=== PATIENT | male | born 1965 | race Caucasian/White ===

== ENCOUNTER 2016-08-08 04:28 | Observation (INO) | payer SELFPAY ==
[~2016-08-08] VITALS: Ht 180.3 cm; Wt 56.3 kg
[~2016-08-08 04:28] MED LIST: CHLO25 PO
[2016-08-08 04:34] VITALS: BP 133/99; PULSE 130; RESP 20; TEMP 99; O2SAT 97
[2016-08-08] MEDS ORDERED: SODIUM CHLOR 0.9% 1000 ML INJ 1,000 ML IV SCH ×2 (04:50→06:45)
[2016-08-08 04:55] VITALS: RESP 18; O2SAT 99
[2016-08-08 05:00] VITALS: BP 144/97; PULSE 89; RESP 18; O2SAT 99
[2016-08-08] MEDS ORDERED: SODIUM CHLORID 0.9% 500 ML INJ 500 ML IV ONE ×2 (05:00→07:00)
[2016-08-08] MEDS ORDERED: SODIUM CHLORIDE 0.9% FLUSH 10 ML FLUSH IV FLUSH PRN (05:00)
[2016-08-08] MEDS ORDERED: PANTOPRAZOLE SODIUM 40 MG VIAL IVP ONE (05:00)
--- NOTE | 2016-08-08 05:03 | PD ---
HPI Chief Complaint: abdominal pain Time Seen by Provider: 04:50 Travel History International Travel<30 days: No Contact w/Intl Traveler<30days: No Traveled to known affect area: No History of Present Illness HPI 51-year-old male presents to the emergency department by private transportation for complaint of abdominal pain and constipation. Patient reports no bowel movement 2 days. Patient has been using a stool softener without relief. Patient reports decreased oral intake. Patient reports pain is very severe and this evening he tried to digitally disimpact himself and noted some blood. Patient also reports that while sitting on the toilet smoking the cigarette he noticed some blood on the cigarette itself. Patient denies other concerns or complaints. Patient denies fever or chills. Patient has had no chest pain or shortness of breath. Patient does admit to tobacco use and alcohol use. Patient denies any chronic medical conditions other than kidney stones diagnosed a few years ago. Patient reports rectal pain as severe. Patient denies inserting anything rectally. PFSH Past Medical History Narrative Medical Anxiety, kidney stones, tonsillectomy; alcohol use tobacco use; nursing notes reviewed Anxiety: Yes Depression: No Cancer: No Cardiovascular Problems: No Diminished Hearing: No Endocrine: No Genitourinary: No Immune Disorder: No Musculoskeletal: No Neurologic: No Psychiatric: Yes (alcohol dependance) Reproductive: No Respiratory: No Past Surgical History Tonsillectomy: Yes Social History Alcohol Use: Yes (occ) Tobacco Use: Yes (1 ppd) Substance Use: No Allergies-Medications (Allergen,Severity, Reaction): Coded Allergies: No Known Allergies (Unverified , 08/08/16) Reported Meds & Prescriptions Reported Meds & Active Scripts Active Review of Systems Except as stated in HPI: all other systems reviewed are Neg General / Constitutional: No: Fever HENT: No: Congestion Cardiovascular: No: Chest Pain or Discomfort Respiratory: No: Shortness of Breath Gastrointestinal: Positive: Nausea, Abdominal Pain, Constipation, Loss of Appetite, No: Vomiting, Diarrhea Genitourinary: Positive: Decreased Urinary Output Musculoskeletal: No: Myalgias, Arthralgias Skin: No Rash Neurologic: Positive: Weakness Psychiatric: Positive: Anxiety Hematologic/Lymphatic: No: Easy Bruising Physical Exam Narrative GENERAL: Thin anxious-appearing male in no respiratory distress. SKIN: Warm and dry. HEAD: Normocephalic. EYES: No scleral icterus. No injection or drainage. NECK: Supple, trachea midline. No JVD or lymphadenopathy. CARDIOVASCULAR: Regular rate and rhythm without murmurs, gallops, or rubs. RESPIRATORY: Breath sounds equal bilaterally. No accessory muscle use. GASTROINTESTINAL: Abdomen soft, tender bilateral lower quadrants to palpation without guarding or rebound, nondistended. Rectal exam: No fissure no hemorrhoid, normal sphincter tone, large bolus of formed firm stool in the rectal vault brown stool on the exam glove. No palpable foreign body other than stool noted. MUSCULOSKELETAL: No cyanosis, or edema. BACK: Nontender without obvious deformity. No CVA tenderness. Data Data Last Documented VS Vital Signs Date Time Temp Pulse Resp B/P Pulse Ox O2 Delivery O2 Flow Rate FiO2 08/08/16 07:11 16 08/08/16 06:15 98.3 91 132/79 99 Room Air Orders Complete Blood Count With Diff (08/08/16 04:50) Comprehensive Metabolic Panel (08/08/16 04:50) Lipase (08/08/16 04:50) Lactic Acid (08/08/16 04:50) Prothrombin Time / Inr (Pt) (08/08/16 04:50) Act Partial Throm Time (Ptt) (08/08/16 04:50) Urinalysis - C+S If Indicated (08/08/16 04:50) Ct Abd/Pel W Iv Contrast(Rout) (08/08/16 04:50) Iv Access Insert/Monitor (08/08/16 04:50) Ecg Monitoring (08/08/16 04:50) Oximetry (08/08/16 04:50) Pantoprazole Inj (Protonix Inj) (08/08/16 05:00) Sodium Chlor 0.9% 1000 Ml Inj (Ns 1000 M (08/08/16 04:50) Sodium Chloride 0.9% Flush (Ns Flush) (08/08/16 05:00) Alcohol (Ethanol) (08/08/16 04:50) Magnesium (Mg) (08/08/16 04:50) Type And Screen (08/08/16 04:50) Sodium Chlorid 0.9% 500 Ml Inj (Ns 500 M (08/08/16 05:00) Chest, Single Ap (08/08/16 ) Sodium Chlor 0.9% 1000 Ml Inj (Ns 1000 M (08/08/16 05:30) Piperacil-Tazo 4.5 Gm Premix (Zosyn 4.5 (08/08/16 05:30) Ondansetron Inj (Zofran Inj) (08/08/16 05:30) Hydromorphone Pf Inj (Dilaudid Pf Inj) (08/08/16 05:30) Iohexol 350 Inj (Omnipaque 350 Inj) (08/08/16 05:57) Lactic Acid (08/08/16 06:25) Bisacodyl Supp (Dulcolax Supp) (08/08/16 06:45) Diet Npo (08/08/16 Breakfast) Vital Signs (Adult) JONES.Q4H (08/08/16 06:39) Sodium Chlor 0.9% 1000 Ml Inj (Ns 1000 M (08/08/16 06:45) Pantoprazole Inj (Protonix Inj) (08/08/16 09:00) Ondansetron Inj (Zofran Inj) (08/08/16 06:45) Admit Order (Ed Use Only) (08/08/16 ) ^ Saline Lock (08/08/16 06:46) Resp Oxygen Kamaljit C Titrat 1-4 L (08/08/16 ) Notify Dr: Other (08/08/16 06:46) Sodium Chloride 0.9% Flush (Ns Flush) (08/08/16 09:00) Sodium Chloride 0.9% Flush (Ns Flush) (08/08/16 07:00) Arterial Blood Gas (Abg) (08/08/16 ) Sodium Chlorid 0.9% 500 Ml Inj (Ns 500 M (08/08/16 07:00) Alcohol Withdrawal Asmt-Ciwa ONCE (08/08/16 06:49) Flumazenil Inj (Romazicon Inj) (08/08/16 07:00) Lorazepam (Ativan) (08/08/16 07:00) Lorazepam Inj (Ativan Inj) (08/08/16 07:00) Lorazepam (Ativan) (08/08/16 07:00) Lorazepam Inj (Ativan Inj) (08/08/16 07:00) Lorazepam Inj (Ativan Inj) (08/08/16 07:00) Lorazepam Inj (Ativan Inj) (08/08/16 07:00) Labs Laboratory Tests Test 08/08/16 08/08/16 04:55 06:00 White Blood Count 12.0 TH/MM3 Red Blood Count 4.57 MIL/MM3 Hemoglobin 15.3 GM/DL Hematocrit 45.2 % Mean Corpuscular Volume 99.0 FL Mean Corpuscular Hemoglobin 33.4 PG Mean Corpuscular Hemoglobin 33.8 % Concent Red Cell Distribution Width 12.4 % Platelet Count 312 TH/MM3 Mean Platelet Volume 7.4 FL Neutrophils (%) (Auto) 62.5 % Lymphocytes (%) (Auto) 20.9 % Monocytes (%) (Auto) 11.4 % Eosinophils (%) (Auto) 2.9 % Basophils (%) (Auto) 2.3 % Neutrophils # (Auto) 7.5 TH/MM3 Lymphocytes # (Auto) 2.5 TH/MM3 Monocytes # (Auto) 1.4 TH/MM3 Eosinophils # (Auto) 0.3 TH/MM3 Basophils # (Auto) 0.3 TH/MM3 CBC Comment DIFF FINAL Differential Comment Prothrombin Time 9.8 SEC Prothromb Time International 0.9 RATIO Ratio Activated Partial 29.1 SEC Thromboplast Time Sodium Level 138 MEQ/L Potassium Level 3.8 MEQ/L Chloride Level 103 MEQ/L Carbon Dioxide Level 18.6 MEQ/L Anion Gap 16 MEQ/L Blood Urea Nitrogen 3 MG/DL Creatinine 0.75 MG/DL Estimat Glomerular Filtration 110 ML/MIN Rate Random Glucose 93 MG/DL Lactic Acid Level 3.6 mmol/L Calcium Level 9.2 MG/DL Magnesium Level 1.8 MG/DL Total Bilirubin 0.7 MG/DL Aspartate Amino Transf 23 U/L (AST/SGOT) Alanine Aminotransferase 21 U/L (ALT/SGPT) Alkaline Phosphatase 72 U/L Total Protein 7.2 GM/DL Albumin 3.8 GM/DL Lipase 56 U/L Ethyl Alcohol Level 4 MG/DL Blood Type B NEGATIVE Antibody Screen NEGATIVE Blood Bank Comment Urine Color STRAW Urine Turbidity CLEAR Urine pH 5.5 Urine Specific Saline 1.010 Urine Protein NEG mg/dL Urine Glucose (UA) NEG mg/dL Urine Ketones 15 mg/dL Urine Occult Blood NEG Urine Nitrite NEG Urine Bilirubin NEG Urine Leukocyte Esterase NEG Urine RBC 0-2 /hpf Urine WBC 0-2 /hpf Urine Squamous Epithelial 0-5 /hpf Cells Urine Bacteria NONE /hpf Microscopic Urinalysis Comment CULT NOT INDICATED MDM Medical Decision Making Medical Screen Exam Complete: Yes Emergency Medical Condition: Yes Medical Record Reviewed: Yes Interpretation(s) CBC & BMP Diagram 08/08/16 04:55 Vital Signs Date Time Temp Pulse Resp B/P Pulse Ox O2 Delivery O2 Flow Rate FiO2 08/08/16 06:15 98.3 91 20 132/79 99 Room Air 08/08/16 06:15 18 08/08/16 05:30 87 18 119/80 100 Room Air 08/08/16 05:00 89 18 144/97 99 Room Air 08/08/16 04:55 18 99 Room Air 08/08/16 04:50 18 08/08/16 04:34 99.0 130 20 133/99 97 Lactic acid 3.6, elevated Serum alcohol: 4.0, minimally elevated Urinalysis: ketones otherwise unremarkable Differential Diagnosis Abdominal pain, colitis, diverticulitis, bowel obstruction, constipation obstipation, viscus perforation, GI bleed, esophageal varices, AVM, alcoholism, electrolyte disturbance, dehydration, sepsis, alcohol ketoacidosis, lactic acidosis, peritonitis, pneumonia Narrative Course Patient placed on cardiac cath lab manager IV access obtained specimens collected and sent for resulting; she administered normal saline bolus and Zofran for nausea Lab values resulting with white count of 12,000 but otherwise normal hemoglobin hematocrit platelet count and automated differential; lactic acid elevated at 3.6 with a bicarbonate of 18 and an anion gap of 16; patient administered Zosyn 4.[address] abdomen and pelvis pending chest x-ray for subdiaphragmatic free air pending serum alcohol 4, not elevated. Coagulation studies found in normal range. Patient requesting pain medication and receiving maintenance IV fluids 125 cc per hour normal saline; Dilaudid 0.5 mg administered @5:45 AM patient has gone to CT At 6:[address] resulted and remarkable for fatty liver and constipation no acute intra-abdominal or pelvic abnormality; chest x-ray no lobar infiltrate no subdiaphragmatic free air; patient administered a lot suppository. Patient identified to have leukocytosis with lactic acidosis 3.6 and noted bicarbonate of 18.6 with anion gap 16; ABG ordered. Patient continues to complain of abdominal pain and noted subsequently to have blood in his mouth without obvious intraoral source of bleeding. Patient denies coughing any blood has had nausea unclear if this was related to regurgitation or hematemesis but this is the third time this has happened reportedly this morning. With patient's history of previous alcohol abuse concerning for gastritis, esophagitis, or variceal bleeding. Will admit patient for observation. Repeat lactic acid pending. Case discussed with on-call [facility] MD Dr. Espinoza will admit as observation with gastritis unclear if GI bleed, elevated lactic acid level with pending two hour lactate do at 7:30 AM; in view of history of previous alcohol abuse that patient states he has significantly decreased alcohol consumption to rare use with normal range serum magnesium serum albumin and serum protein at this time does not appear to have active alcohol withdrawal symptoms other than noted to have tachycardia upon arrival with upper limit of normal blood pressure will add CIWA protocol. Patient with mother at bedside refuses admission to the hospital extensive and detailed discussion held with the patient with family at bedside and with patient's nurse at bedside including risk of leaving AGAINST MEDICAL ADVICE versus benefit of staying in the hospital. Patient is aware of risk of acute deterioration GI bleed cardiac arrhythmia and . Patient states that he is aware of the risk and states he cannot stay. Patient is aware that he'll be signing out against medical advise. AMA: The risks of leaving against medical advice without further evaluation treatment were discussed with the patient. These risks include cardiac dysfunction, cardiac dysrhythmia, possible heart attack, possible stroke or . The patient indicated understanding of these risks and appeared to have the capacity to make this decision. Critical Care Narrative Aggregate critical care time was 35 minutes. Time to perform other separately billable procedures was not included in the critical care time. My time did not include minutes spent treating any other patients simultaneously or on activities that did not directly contribute to the patient's treatment. The services I provided to this patient were to treat and/or prevent clinically significant deterioration that could result in: GI bleed with hypovolemic shock , septic shock, metabolic derangement, I provided critical care services requiring my management, as noted below: Chart data review, documentation time, medication orders and management, vital sign assessments/reviewing monitor data, ordering and reviewing lab tests, ordering and interpreting/reviewing x-rays and diagnostic studies, care of the patient and discussion of the patient with the admitting physicians. HemaPrompt Point of Care Internal Pos. & Neg. Controls: Passed Fecal Specimen Occult Blood: Positive (tracemucous on glove brown stool no gross blood or melena) Sepsis Criteria SIRS Criteria (2 or more): Heart rate over 90, WBC > 05804, < 4000 or > 10% bands Severe Sepsis (+one): Lactate >2 Physician Communication Physician Communication discussed with Dr Ferris --obs for gastritis and lactic acidosis; discussed with GI Dr Mora Diagnosis Primary Impression: Gastritis Qualified Code: K29.01 - Acute gastritis with hemorrhage, unspecified gastritis type Additional Impressions: Elevated lactic acid level Constipation Qualified Code: K59.09 - Other constipation GI bleed Qualified Code: K92.2 - Gastrointestinal hemorrhage, unspecified gastrointestinal hemorrhage type Admitting Information Admitting Physician Requests: Observation Sury Montalvo MD Aug 08, 2016 05:03
[2016-08-08 05:12] LABS: AUTOMATED NEUTROPHIL # 7.5 TH/MM3 (1.8-7.7); BASOPHIL # 0.3 TH/MM3 (0-0.2); BASOPHIL % 2.3 % (0.0-2.0); EOSINOPHIL # 0.3 TH/MM3 (0-0.4); EOSINOPHIL % 2.9 % (0.0-4.0); HEMATOCRIT 45.2 % (39.0-51.0); LYMPH % 20.9 % (9.0-44.0); LYMPHOCYTE # 2.5 TH/MM3 (1.0-4.8); MEAN CORPUSCULAR HEMOGLOBIN 33.4 PG (27.0-34.0); MEAN CORPUSCULAR HGB CONC 33.8 % (32.0-36.0); MONO % 11.4 % (0.0-8.0); NEUT % 62.5 % (16.0-70.0); PLATELET COUNT 312 TH/MM3 (150-450); RED BLOOD COUNT 4.57 MIL/MM3 (4.50-5.90); RED CELL DISTRIBUTION WIDTH 12.4 % (11.6-17.2)
[2016-08-08 05:15] LABS: CHLORIDE 103 MEQ/L (98-107); POTASSIUM 3.8 MEQ/L (3.5-5.1); SODIUM (NA) 138 MEQ/L (136-145)
[2016-08-08 05:19] LABS: ANION GAP 16 MEQ/L (5-15); APTT (PATIENT) 29.1 SEC (24.3-30.1); BICARBONATE 18.6 MEQ/L (21.0-32.0); BLOOD UREA NITROGEN 3 MG/DL (7-18); HEMO FLAGS DIFF FINAL; INTERNATIONAL NORMALIZED RATIO 0.9 RATIO; MAGNESIUM 1.8 MG/DL (1.5-2.5); PROTHROMBIN TIME - PATIENT 9.8 SEC (9.8-11.6)
[2016-08-08 05:21] LABS: ALT (GPT) 21 U/L (12-78)
[2016-08-08 05:22] LABS: AST (GOT) 23 U/L (15-37); GLOMERULAR FILTRATION RATE 110 ML/MIN (>89)
[2016-08-08 05:23] LABS: TOTAL BILIRUBIN ADULT 0.7 MG/DL (0.2-1.0)
[2016-08-08 05:24] LABS: ALKALINE PHOSPHATASE 72 U/L (45-117)
[2016-08-08 05:30] VITALS: BP 119/80; PULSE 87; RESP 18; O2SAT 100
[2016-08-08] MEDS ORDERED: ONDANSETRON HCL 4 MG/2 ML VIAL IV PUSH ONE (05:30)
[2016-08-08] MEDS ORDERED: HYDROmorphone HCL PF 1 MG/ML VIAL IV PUSH ONE (05:30)
[2016-08-08] MEDS ORDERED: SODIUM CHLOR 0.9% 1000 ML INJ 1,000 ML IV ONE (05:30)
[2016-08-08] MEDS ORDERED: PIPERACIL-TAZO 4.5 GM PREMIX 100 ML IV ONE (05:30)
[2016-08-08] MEDS ORDERED: IOHEXOL 350 MG/ML 10 ML VIAL (for RAD DIAG) IV ONE (05:57)
[2016-08-08 06:15] VITALS: BP 132/79; PULSE 91; RESP 20; TEMP 98.3; O2SAT 99
[2016-08-08 06:15] LABS: BLOOD, URINE NEG (NEG); GLUCOSE,URINE NEG (NEG); KETONE, URINE 15 mg/dL (NEG); NITRITE,URINE NEG (NEG); PH, URINE 5.5 (5.0-8.5)
[2016-08-08 06:23] LABS: URINE COLOR STRAW (YELLW/STRAW)
[2016-08-08 06:24] LABS: COMMENT (UR) CULT NOT INDICATED; CULTURE IF INDICATED CULT NOT INDICATED; RBC, URINE 0-2 /hpf (0-3); SQUAMOUS EPITHELIAL CELL URINE 0-5 /hpf (0-5); WBC, URINE 0-2 /hpf (0-5)
--- NOTE | 2016-08-08 06:26 | RADHPO ---
EXAM DATE/TIME: 08/08/2016 05:38 [facility] COMPARISON: CT ABDOMEN & PELVIS W/O CONTRAST, August 31, 2014, 9:06. INDICATIONS : Abdominal pain. Constipation. Rectal bleeding. IV CONTRAST: 100 cc Omnipaque 350 (iohexol) IV ORAL CONTRAST: No oral contrast ingested. RADIATION DOSE: 4.87 CTDIvol (mGy) MEDICAL HISTORY : None SURGICAL HISTORY : None. ENCOUNTER: Initial ACUITY: 3 days PAIN SCALE: 9/10 LOCATION: Bilateral lower quadrant upper quadrant. TECHNIQUE: Volumetric scanning of the abdomen and pelvis was performed. Using automated exposure control and ad justment of the mA and/or kV according to patient size, radiation dose was kept as low as reasonably achievable to obtain optimal diagnostic quality images. FINDINGS: CT Abdomen: The spleen, pancreas, kidneys, adrenals are unremarkable. There is no evidence for any ap preciable pathological adenopathy, free fluid, or bowel obstruction. There is slight scarring in the right lung base. The liver is fatty without focal lesions or technique. Chronic vascular calcificati ons are present involving the aorta, iliac arteries without any significant stenosis or aneurysmal di latations for technique. CT pelvis: There is no evidence for mass, abscess formation, or any significant adenopathy within the pelvis. There is an area of sclerosis involving the left femoral head may represent avascular necros is not changed since the prior exam. There is chronic bilateral spondylolysis at L5 level. There is m oderate amount of stool throughout the colon. CONCLUSION: 1. Fatty liver. 2. Chronic spondylolysis L5. 3. Possible AVN left femoral head. 4. There is moderate amount of stool throughout the colon. Kristina Mejia MD on August 08, 2016 at 6:21 Board Certified Radiologist. This report was verified electronically.
--- NOTE | 2016-08-08 06:38 | RADHPO ---
EXAM DATE/TIME: 08/08/2016 05:33 [facility] COMPARISON: No previous studies available for comparison. INDICATIONS : Short of breath. MEDICAL HISTORY : Hypertension. SURGICAL HISTORY : None. ENCOUNTER: Initial ACUITY: 1 day PAIN SCORE: 0/10 LOCATION: Bilateral chest FINDINGS: The lungs are clear without infiltrate, nodule, or mass. There is no appreciable pleural effusion fo r technique. Heart and mediastinum are unremarkable. CONCLUSION: No acute cardiopulmonary disease. Kristina Mejia MD on August 08, 2016 at 6:36 Board Certified Radiologist. This report was verified electronically.
[2016-08-08] MEDS ORDERED: ONDANSETRON HCL 4 MG/2 ML VIAL IV PUSH PRN (06:45)
[2016-08-08] MEDS ORDERED: BISACODYL 10 MG SUPP RECTAL ONE (06:45)
[2016-08-08] MEDS ORDERED: LORazepam 1 MG TAB PO PRN (07:00)
[2016-08-08] MEDS ORDERED: FLUMAZENIL 0.5 MG/5 ML VIAL IV PUSH PRN (07:00)
[2016-08-08] MEDS ORDERED: SODIUM CHLORIDE 0.9% FLUSH 10 ML FLUSH IVF PRN (07:00)
[2016-08-08] MEDS ORDERED: LORazepam 2 MG TAB PO PRN (07:00)
[2016-08-08] MEDS ORDERED: LORazepam 2 MG/ML VIAL IV PUSH PRN ×4 (07:00)
[2016-08-08 07:11] VITALS: BP 119/86; PULSE 92; RESP 16; TEMP 98; O2SAT 99
[2016-08-08] MEDS ORDERED: SODIUM CHLORIDE 0.9% FLUSH 10 ML FLUSH IV FLUSH SCH (09:00)
[2016-08-08] MEDS ORDERED: PANTOPRAZOLE SODIUM 40 MG VIAL IV PUSH SCH (09:00)
== END 2016-08-08 07:56 | disposition home or self-care (01) ==
LOC: PHED 04:28 → PHEDA 06:47
PROVIDERS: ADMIT Internal Medicine; ATTEND Internal Medicine
DX: K29.00 Acute gastritis without bleeding (principal); K59.00 Constipation, unspecified; K62.89 Other specified diseases of anus and rectum; F41.9 Anxiety disorder, unspecified; F17.210 Nicotine dependence, cigarettes, uncomplicated; R74.0 Nonspecific elevation of levels of transaminase and lactic acid dehydrogenase [LDH]; K76.0 Fatty (change of) liver, not elsewhere classified; R06.02 Shortness of breath; R79.89 Other specified abnormal findings of blood chemistry
CPT/HCPCS: 71010; 74177; 80053; 80307; 81001; 83605; 83690; 83735; 85025; 85610; 85730; 86850; 86900; 86901; 96361; 96365; 96375; 99291; C9113; G0378; J1170; J2405; J2543; J7030; J7040; Q9967

== ENCOUNTER 2016-09-27 07:07 | Emergency (ER) | payer SELFPAY ==
[~2016-09-27] VITALS: Ht 180.3 cm; Wt 63.5 kg
[2016-09-27 07:14] VITALS: BP 139/79; PULSE 89; RESP 17; TEMP 98.8; O2SAT 100
--- NOTE | 2016-09-27 07:42 | PD ---
HPI . Abdominal pain Chief Complaint: Abdominal Pain Time Seen by Provider: 07:24 Travel History International Travel<30 days: No Contact w/Intl Traveler<30days: No Traveled to known affect area: No History of Present Illness HPI Patient presents with a chief complaint of abdominal pain. Actually, the first thing that he said to me was "can you give me something for this pain." Patient reports the onset of abdominal pain at about 5:30 AM. He complains of right lower quadrant and right testicular pain. He states that it is a stabbing pain which she rates as 10/10. He also reports "spitting up blood" and blood in his stool. PFSH Past Medical History Anxiety: Yes Depression: No Cancer: No Cardiovascular Problems: No Diminished Hearing: No Endocrine: No Genitourinary: No Immune Disorder: No Kidney Stones: Yes Musculoskeletal: No Neurologic: No Psychiatric: Yes (alcohol dependance) Reproductive: No Respiratory: No ?: Not Past Surgical History Tonsillectomy: Yes Other Surgery: Yes Social History Alcohol Use: Yes (occ) Tobacco Use: Yes (3/4 ppd) Substance Use: No Allergies-Medications (Allergen,Severity, Reaction): Coded Allergies: Penicillin (Verified Allergy, Unknown, 09/27/16) Reported Meds & Prescriptions Reported Meds & Active Scripts Active No Active Prescriptions or Reported Medications Review of Systems Except as stated in HPI: all other systems reviewed are Neg Gastrointestinal: Positive: Abdominal Pain, Hematochezia Genitourinary: Positive: Other (right testicular pain), No: Urgency, Frequency , Dysuria Physical Exam Narrative GENERAL: Patient smells of alcohol. SKIN: Warm and dry. HEAD: Atraumatic. Normocephalic. EYES: Pupils equal and round. Extraocular movements are intact. ENT: No nasal bleeding or discharge. Mucous membranes pink and moist. NECK: Trachea midline. Neck is supple. CARDIOVASCULAR: Regular rate and rhythm. Heart sounds are normal. RESPIRATORY: No accessory muscle use. Lungs are clear with full air movement throughout. GASTROINTESTINAL: Abdomen soft and right lower quadrant tenderness. Nondistended. : Normal circumcised male. There is no testicular swelling or tenderness. No tenderness or swelling of the epididymis or spermatic cord. No hernia. RECTAL: No external hemorrhoid noted. No masses. Brown stool in the rectal vault which is soft. MUSCULOSKELETAL: No obvious deformities. No edema. NEUROLOGICAL: Awake and alert. No obvious cranial nerve deficits. Motor grossly within normal limits. Normal speech. PSYCHIATRIC: Appropriate mood and affect; insight and judgment normal. Data Data Last Documented VS Vital Signs Date Time Temp Pulse Resp B/P Pulse Ox O2 Delivery O2 Flow Rate FiO2 09/27/16 07:14 98.8 89 17 139/79 100 MDM Medical Decision Making Medical Screen Exam Complete: Yes Emergency Medical Condition: Yes Medical Record Reviewed: Yes (patient was seen here on 08/08/16 with similar complaints. He was noted to have leukocytosis and lactic acidosis. He also had some blood in his mouth at one point while he was here. He was subsequently admitted to observation but left AMA.) Differential Diagnosis Differential diagnosis of abdominal pain includes but is not limited to gastritis, pancreatitis, hepatitis, gastroenteritis, gallbladder disease, constipation, urinary retention, UTI, peptic ulcer disease, diverticulitis or appendicitis Narrative Course Patient presents for evaluation of right lower quadrant abdominal pain, right testicular pain and "spitting up blood" and passing blood in his stool. I asked the patient how much he had had to drink in the recent past as he smelled of alcohol. The patient subsequently requested to leave AMA. HemaPrompt Point of Care Internal Pos. & Neg. Controls: Passed Fecal Specimen Occult Blood: Negative Diagnosis Primary Impression: Abdominal pain Qualified Code: R10.31 - Right lower quadrant abdominal pain Patient Instructions: General Instructions, Abdominal Pain (ED) Departure Forms: Tests/Procedures Scripts No Active Prescriptions or Reported Meds Disposition: 07 AGAINST MEDICAL ADVICE Condition: Stable Crystal Marr MD September 27, 2016 07:42
== END 2016-09-27 08:14 | disposition left against medical advice (07) ==
LOC: PHED 07:07
DX: R10.31 Right lower quadrant pain (principal); N50.811 Right testicular pain; K92.1 Melena; R04.2 Hemoptysis; Z87.442 Personal history of urinary calculi; Z53.29 Procedure and treatment not carried out because of patient's decision for other reasons; F17.210 Nicotine dependence, cigarettes, uncomplicated
CPT/HCPCS: 99283

== ENCOUNTER 2017-04-24 19:24 | Inpatient (IN) | payer SELFPAY ==
[~2017-04-24] VITALS: Ht 180.3 cm; Wt 51.5 kg
[2017-04-24 19:40] VITALS: BP 132/96; PULSE 111; RESP 20; TEMP 99.8; O2SAT 96
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
[2017-04-24] MEDS ORDERED: SODIUM CHLOR 0.9% 1000 ML INJ 1,000 ML IV ONE (20:00)
[2017-04-24] MEDS ORDERED: ONDANSETRON HCL 4 MG/2 ML VIAL IVP ONE (20:00)
[2017-04-24] MEDS ORDERED: SODIUM CHLORIDE 0.9% FLUSH 10 ML FLUSH IVF PRN (20:00)
[2017-04-24] MEDS ORDERED: HYDROmorphone HCL PF 2 MG/ML VIAL IV PUSH ONE ×2 (20:00→21:30)
[2017-04-24 20:35] LABS: AUTOMATED NEUTROPHIL # 5.6 TH/MM3 (1.8-7.7); BASOPHIL # 0.1 TH/MM3 (0-0.2); BASOPHIL % 1.4 % (0.0-2.0); EOSINOPHIL % 0.5 % (0.0-4.0); HEMATOCRIT 38.1 % (39.0-51.0); LYMPHOCYTE # 1.4 TH/MM3 (1.0-4.8); MEAN CELL VOLUME 99.5 FL (80.0-100.0); MEAN CORPUSCULAR HGB CONC 34.2 % (32.0-36.0); MEAN PLATELET VOLUME 7.1 FL (7.0-11.0); MONO % 17.5 % (0.0-8.0); MONOCYTE # 1.5 TH/MM3 (0-0.9); NEUT % 64.6 % (16.0-70.0); PLATELET COUNT 328 TH/MM3 (150-450); RED BLOOD COUNT 3.83 MIL/MM3 (4.50-5.90); RED CELL DISTRIBUTION WIDTH 13.1 % (11.6-17.2); WHITE BLOOD COUNT 8.7 TH/MM3 (4.0-11.0)
[2017-04-24 20:36] LABS: BILIRUBIN, URINE NEG (NEG); BLOOD, URINE NEG (NEG); GLUCOSE,URINE NEG (NEG); KETONE, URINE NEG (NEG); NITRITE,URINE NEG (NEG); URINE COLOR LIGHT-YELLOW (YELLW/STRAW); URINE LEUKOCYTE ESTERASE NEG (NEG)
--- NOTE | 2017-04-24 20:42 | RADRPT ---
EXAM DATE/TIME: 04/24/2017 20:22 [facility] COMPARISON: CHEST SINGLE AP, August 08, 2016, 5:33. INDICATIONS : Pain from fall. MEDICAL HISTORY : None. SURGICAL HISTORY : None. ENCOUNTER: Initial ACUITY: 1 day PAIN SCORE: 1/10 LOCATION: Bilateral chest FINDINGS: A single view of the chest demonstrates the lungs to be symmetrically aerated without evidence of mas s, infiltrate or effusion. The cardiomediastinal contours are unremarkable. Osseous structures are intact. CONCLUSION: The lungs are clear. No evidence of pneumothorax. Leeroy Bazan MD on April 24, 2017 at 20:39 Board Certified Radiologist. This report was verified electronically.
[2017-04-24 20:48] LABS: PROTHROMBIN TIME - PATIENT 9.7 SEC (9.8-11.6)
[2017-04-24 20:53] LABS: ALBUMIN 3.8 GM/DL (3.4-5.0); AST (GOT) 40 U/L (15-37); BICARBONATE 21.2 MEQ/L (21.0-32.0); BLOOD UREA NITROGEN 3 MG/DL (7-18); CALCIUM 8.8 MG/DL (8.5-10.1); CHLORIDE 107 MEQ/L (98-107); GLOMERULAR FILTRATION RATE 102 ML/MIN (>89); GLUCOSE,RANDOM 166 MG/DL (74-106); SODIUM (NA) 138 MEQ/L (136-145)
--- NOTE | 2017-04-24 20:53 | RADRPT ---
EXAM DATE/TIME: 04/24/2017 20:09 [facility] COMPARISON: No previous studies available for comparison. INDICATIONS : Pain from fall. MEDICAL HISTORY : None. SURGICAL HISTORY : None. ENCOUNTER: Initial ACUITY: 1 day PAIN SCORE: 10/10 LOCATION: Left pelvis FINDINGS: Oblique lucency through the intertrochanteric region of the right proximal femur and cortical step of f of the superior aspect of the greater trochanter. The pelvic ring is grossly intact. The left pro ximal femur appears intact. CONCLUSION: Probable right intratrochanteric fracture Leeroy Bazan MD on April 24, 2017 at 20:50 Board Certified Radiologist. This report was verified electronically.
[2017-04-24 20:57] LABS: ALKALINE PHOSPHATASE 92 U/L (45-117); ALT (GPT) 28 U/L (12-78); TOTAL PROTEIN 7.3 GM/DL (6.4-8.2)
--- NOTE | 2017-04-24 20:57 | RADRPT ---
EXAM DATE/TIME: 04/24/2017 20:11 [facility] COMPARISON: PELVIS AP ONLY, April 24, 2017, 20:09. INDICATIONS : Pain from fall. MEDICAL HISTORY : None. SURGICAL HISTORY : None. ENCOUNTER: Initial ACUITY: 1 day PAIN SCORE: 10/10 LOCATION: Right proximal femur. FINDINGS: AP examination of the femur demonstrates intact shafts the femur. There is a oblique lucency through the inferior intertrochanteric region which may represent an intratrochanteric fracture. The femora l head and acetabulum appear intact. CONCLUSION: Possible intratrochanteric fracture. Leeroy Bazan MD on April 24, 2017 at 20:54 Board Certified Radiologist. This report was verified electronically.
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
[2017-04-24 21:45] VITALS: BP 153/85; PULSE 95; RESP 20; O2SAT 97
[2017-04-24] MEDS ORDERED: BISACODYL 10 MG SUPP RECTAL PRN (21:45)
[2017-04-24] MEDS ORDERED: ONDANSETRON HCL 4 MG/2 ML VIAL IVP PRN (21:45)
[2017-04-24] MEDS ORDERED: SENNOSIDES 8.6 MG TAB PO PRN (21:45)
[2017-04-24] MEDS ORDERED: MAGNESIUM HYDROXIDE SUSP 30 ML CUP PO PRN (21:45)
[2017-04-24] MEDS ORDERED: SODIUM CHLORIDE 0.9% FLUSH 10 ML FLUSH IV FLUSH PRN (21:45)
[2017-04-24] MEDS ORDERED: ACETAMINOPHEN 325 MG TAB PO PRN (21:45)
[2017-04-24] MEDS ORDERED: ACETAMINOPHEN/HYDROcodone 325 MG/5 MG TAB PO PRN (21:45)
[2017-04-24] MEDS ORDERED: LACTULOSE SYRUP 20 GM/30 ML CUP PO PRN (21:45)
[2017-04-24] MEDS: SODIUM CHLOR 0.9% 1000 ML INJ 1,000 ML IV SCH (21:47)
[2017-04-24 22:00] VITALS: BP 150/89; PULSE 90; RESP 20; O2SAT 98
[2017-04-24] MEDS: DIAZEPAM 10 MG TAB PO PRN (22:18)
[2017-04-24 22:30] VITALS: BP 140/86
[2017-04-24] MEDS: HYDROmorphone HCL PF 2 MG/ML VIAL IV PUSH PRN (22:41)
[2017-04-24] MEDS ORDERED: LORazepam 1 MG TAB PO PRN (23:00)
[2017-04-24] MEDS ORDERED: LORazepam 2 MG/ML VIAL IV PUSH PRN ×4 (23:00)
[2017-04-24] MEDS ORDERED: LORazepam 2 MG TAB PO PRN (23:00)
[2017-04-24] MEDS ORDERED: HALOPERIDOL LACTATE 5 MG/ML AMP IM PRN (23:00)
[2017-04-24] MEDS ORDERED: FLUMAZENIL 0.5 MG/5 ML VIAL IV PUSH PRN (23:00)
[2017-04-25] VITALS: BP 131/70; PULSE 90; RESP 18; TEMP 97.7; O2SAT 96
[2017-04-25] MEDS ORDERED: CHLORHEXIDINE GLUCONATE 2 % 1 PACK (2 CLOTHS) TOPICAL PRN (01:15)
[2017-04-25] MEDS ORDERED: POVIDONE IODINE 5% (ANTISEPSIS KIT) 4 APPLICATIONS EACH NARE PRN (01:15)
[2017-04-25] MEDS ORDERED: SODIUM CHLORID 0.9% 500 ML IV PRN (01:15)
[2017-04-25] MEDS ORDERED: LACTATED RINGER'S 1000 ML IV PRN (01:15)
[2017-04-25] MEDS: HYDROmorphone HCL PF 2 MG/ML VIAL IV PUSH PRN ×4 (03:13→23:29)
[2017-04-25 04:00] VITALS: BP 122/65; PULSE 79; RESP 17; TEMP 98.3; O2SAT 98
[2017-04-25 06:40] LABS: AUTOMATED NEUTROPHIL # 3.1 TH/MM3 (1.8-7.7); BASOPHIL # 0.1 TH/MM3 (0-0.2); EOSINOPHIL # 0.1 TH/MM3 (0-0.4); EOSINOPHIL % 1.5 % (0.0-4.0); HEMATOCRIT 33.8 % (39.0-51.0); HEMOGLOBIN 11.7 GM/DL (13.0-17.0); LYMPH % 33.9 % (9.0-44.0); LYMPHOCYTE # 2.3 TH/MM3 (1.0-4.8); MEAN CELL VOLUME 100.9 FL (80.0-100.0); MEAN CORPUSCULAR HEMOGLOBIN 34.8 PG (27.0-34.0); MEAN CORPUSCULAR HGB CONC 34.5 % (32.0-36.0); MEAN PLATELET VOLUME 7.3 FL (7.0-11.0); MONO % 18.8 % (0.0-8.0); MONOCYTE # 1.3 TH/MM3 (0-0.9); NEUT % 44.8 % (16.0-70.0); PLATELET COUNT 283 TH/MM3 (150-450); RED BLOOD COUNT 3.35 MIL/MM3 (4.50-5.90); RED CELL DISTRIBUTION WIDTH 12.9 % (11.6-17.2); WHITE BLOOD COUNT 6.8 TH/MM3 (4.0-11.0)
[2017-04-25 07:10] LABS: ALKALINE PHOSPHATASE 78 U/L (45-117); ALT (GPT) 21 U/L (12-78); AST (GOT) 26 U/L (15-37); BICARBONATE 26.9 MEQ/L (21.0-32.0); BLOOD UREA NITROGEN 3 MG/DL (7-18); CALCIUM 7.9 MG/DL (8.5-10.1); CHLORIDE 107 MEQ/L (98-107); GLOMERULAR FILTRATION RATE 143 ML/MIN (>89); GLUCOSE,RANDOM 82 MG/DL (74-106); SODIUM (NA) 141 MEQ/L (136-145); TOTAL BILIRUBIN ADULT 1.3 MG/DL (0.2-1.0); TOTAL PROTEIN 5.8 GM/DL (6.4-8.2)
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
[2017-04-25] MEDS ORDERED: XARE10TA PO (07:13)
[2017-04-25] MEDS ORDERED: HYDR-3580 PO (07:13)
[2017-04-25] MEDS ORDERED: WALKER/ADULT/FO1 MIS (07:13)
--- NOTE | 2017-04-25 07:14 | HHI.FF ---
Face to Face Verification Diagnosis: (1) Intertrochanteric fracture of right femur Physical Therapy Gait training Hip: Hip fracture, Protocol: Right Right LE Weight Bearing: WB as tolerated Nursing Dressing Changes: Daily dressing change, 4x4s, Paper tape, Xeroform I have seen patient Rich Horn, III on 04/25/17. My clinical findings support the need for the requested home health care services because: Ltd mobility - disease progression I certify that my clinical findings support that this patient is homebound because: Post-op weakness Giovani Centeno/First Celsa HAGEN Apr 25, 2017 07:14
[2017-04-25] MEDS: SODIUM CHLOR 0.9% 1000 ML INJ 1,000 ML IV SCH ×3 (07:36→20:03)
[2017-04-25] MEDS ORDERED: CLINDAMYCIN PHOS 600 MG/4 ML VIAL ONE (07:56)
[2017-04-25] MEDS ORDERED: VANCOMYCIN HCL 1000 MG VIAL ONE (07:57)
[2017-04-25 08:00] VITALS: BP 139/82; PULSE 79; RESP 18; TEMP 96.8; O2SAT 99
[2017-04-25] MEDS: SODIUM CHLORIDE 0.9% FLUSH 10 ML FLUSH IV FLUSH SCH ×2 (08:04→20:03)
[2017-04-25] MEDS: DOCUSATE SODIUM 50 MG/SENNA 8.6 MG TAB PO SCH ×2 (08:04→20:02)
[2017-04-25] MEDS: FOLIC ACID 1 MG TAB PO SCH (08:04)
[2017-04-25] MEDS: THIAMINE HCL 100 MG TAB PO SCH (08:05)
[2017-04-25] MEDS: MULTIVITAMINS/MINERALS THERAPEUTIC TAB PO SCH (08:05)
[2017-04-25] MEDS ORDERED: BUPIVACAINE/EPINEPHRINE 0.25% PF 30 ML VIAL ONE (08:12)
[2017-04-25] MEDS ORDERED: DO NOT ADM ANY ANTICOAGULANT DRUGS PRN (08:58)
--- NOTE | 2017-04-25 08:58 | PD.OP ---
cc: Russ Edmonds MD Operative Report Date of Surgery: Apr 25, 2017 Preoperative Diagnosis: Right hip intertrochanteric fracture Postoperative Diagnosis: Procedure: Right hip reduction and intramedullary nail fixation Anesthesia: Gen. Surgeon: Rsus Edmonds Guinea Pig Breeder(s): GEORGIE Burr PA-C The surgical procedure was assisted by my physician stores assistant. My P.A. presence was necessary throughout this case for the manipulation and positioning of the surgical extremity. My P.A. was assisting me throughout the duration of this procedure. The skill set of a physician stores assistant was medically necessary to complete this procedure. During the surgical case the surgical oncologist was working at the back table and the physician stores assistant was directly assisting me. Operation and Findings: Implants used: [11]mm 130 Synthes TFNA short troch nail Plan of activity: Weight-bear as tolerated Patient was seen and evaluated preoperatively. The patient has significant hip pain from intertrochanteric hip fracture. The risk and benefits of surgery were discussed in depth with the patient to include bleeding infection nonunion malunion and need for hip replacement painful hardware as well as medical competitions including but not stroke heart attack and . Informed consent was obtained. Operative site was marked. Patient was brought to the operating room and placed on fracture table. IV sedation was administered by anesthesiologist. Timeout procedure was performed. Hip and leg were prepped with alcohol followed by DuraPrep and draped in the usual sterile fashion. IV antibiotics were given prior to incision. Procedure began with reduction of fracture. Traction was applied. The leg was manipulated to achieve reduction. Excellent reduction was achieved. Fluoroscopy was used to confirm reduction. A three inch incision was made proximal to the trochanter. Subcutaneous tissue was dissected bluntly. Guidepin was placed at the tip of the trochanter and advanced into the femoral canal. Fluoroscopy confirmed appropriate guidepin placement. A opening reamer was placed over the guidepin. The Synthes TFNA nail was attached to the insertion handle. Nail was now placed through the tip of the trochanter into the femoral canal. Fluoroscopy confirmed appropriate nail placement. A second incision was made over the lateral thigh. Cannulas were placed through the insertion handle down to the femur. Guidepin was now placed through the femoral nail into the center of the femoral head. Fluoroscopy confirmed appropriate guidepin placement. Screw length was measured. Cannulated drill was placed over the guidepin. Appropriate length lag screw was now placed. Traction was released and compression was applied. The set screw was now tightened in dynamic mode. Using the insertion handle as a guide a distal interlocking screw was drilled and placed. Final fluoroscopy revealed well aligned fracture with well-placed hardware. Incision was closed with 3-0 Vicryl and fredy. Sterile dressings were applied. Patient was awakened and transferred to recovery room. Russ Edmonds MD Apr 25, 2017 08:58
[2017-04-25] MEDS ORDERED: MORPHINE SULFATE 2 MG/ML INJ IV PUSH PRN (09:00)
[2017-04-25] MEDS ORDERED: diphenhydrAMINE HCL 25 MG CAP PO PRN (09:00)
[2017-04-25] MEDS ORDERED: ERGOCALCIFEROL (VIT D2) 50,000 UNIT CAP PO ONE (09:00)
[2017-04-25] MEDS ORDERED: *MEPERIDINE 25 MG INJ VIAL PERIprocedural Use ONLY ONE (09:08)
--- NOTE | 2017-04-25 09:18 | RADRPT ---
EXAM DATE/TIME: 04/25/2017 08:43 [facility] COMPARISON: PELVIS AP ONLY, April 24, 2017, 20:09. INDICATIONS : Open reduction internal fixation of the right hip. MEDICAL HISTORY : None. SURGICAL HISTORY : None. ENCOUNTER: Subsequent ACUITY: 2 days PAIN SCORE: Non-responsive. LOCATION: Right hip. FINDINGS: Intertrochanteric nail on the right, in anatomic alignment. CONCLUSION: Anatomic Pasha Solorzano MD FACR on April 25, 2017 at 9:14 Board Certified Radiologist. This report was verified electronically.
[2017-04-25] MEDS ORDERED: *morphine SULFATE 8 MG/ML PERIprocedure ONLY ONE (09:20)
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
[2017-04-25] MEDS: ACETAMINOPHEN/HYDROcodone 325 MG/7.5 MG TAB PO PRN ×4 (10:28→21:05)
[2017-04-25] MEDS: CHOLECALCIFEROL (VIT D3) 5000 UNIT CAP PO SCH (10:28)
[2017-04-25 12:00] VITALS: BP 116/71; PULSE 84; RESP 18; TEMP 97.8; O2SAT 96
[2017-04-25] MEDS ORDERED: PROPOFOL 200 MG/20 ML AMP IV ONE (12:00)
[2017-04-25] MEDS ORDERED: LIDOCAINE HCL 1% PF 5 ML SYRINGE OTHER ONE (12:00)
[2017-04-25 16:00] VITALS: BP 123/73; PULSE 89; RESP 18; TEMP 99; O2SAT 100
--- NOTE | 2017-04-25 16:58 | EKG ---
Date Performed: 04/25/2017 Time Performed: 05:41:42 PTAGE: 51 years EKG: Sinus rhythm Normal ECG NO PREVIOUS TRACING Compared to prior tracing no significant change DOCTOR: Sha Tao Interpretating Date/Time 04/25/2017 16:58:10
[2017-04-25 20:48] VITALS: BP 125/78; PULSE 84; RESP 18; TEMP 99.1; O2SAT 98
[2017-04-26] VITALS (9 sets, daily range): BP systolic 93–141; BP diastolic 63–86; PULSE 86–111; RESP 17–18; TEMP 98–100; O2SAT 95–100
[2017-04-26] MEDS: DIAZEPAM 10 MG TAB PO PRN (01:06)
[2017-04-26] MEDS: ACETAMINOPHEN/HYDROcodone 325 MG/7.5 MG TAB PO PRN ×3 (04:40→12:01)
[2017-04-26] MEDS: HYDROmorphone HCL PF 2 MG/ML VIAL IV PUSH PRN ×4 (04:56→20:16)
[2017-04-26 07:12] LABS: HEMATOCRIT 28.1 % (39.0-51.0)
[2017-04-26] MEDS: THIAMINE HCL 100 MG TAB PO SCH (08:11)
[2017-04-26] MEDS: CHOLECALCIFEROL (VIT D3) 5000 UNIT CAP PO SCH (08:11)
[2017-04-26] MEDS: FOLIC ACID 1 MG TAB PO SCH (08:11)
[2017-04-26] MEDS: MULTIVITAMINS/MINERALS THERAPEUTIC TAB PO SCH (08:11)
[2017-04-26] MEDS: DOCUSATE SODIUM 50 MG/SENNA 8.6 MG TAB PO SCH ×2 (08:11→20:15)
[2017-04-26] MEDS: ENOXAPARIN SODIUM 30 MG/0.3 ML SYRINGE SQ SCH (08:12)
[2017-04-26] MEDS: SODIUM CHLORIDE 0.9% FLUSH 10 ML FLUSH IV FLUSH SCH ×2 (08:12→20:16)
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
[2017-04-26] MEDS: SODIUM CHLOR 0.9% 1000 ML INJ 1,000 ML IV SCH ×2 (13:36→23:36)
--- NOTE | 2017-04-26 14:58 | HHI.PR ---
Subjective Remarks Follow up hip fracture, alcohol abuse. Patient is anxious. States that he is doing better today. Has been ambulating in the room with a walker. Objective Vitals Vital Signs Date Time Temp Pulse Resp B/P (MAP) Pulse Ox O2 Delivery O2 Flow Rate FiO2 04/26/17 12:00 99.5 99 18 123/70 (87) 98 04/26/17 08:00 98.3 106 18 120/75 (90) 98 04/26/17 04:29 98.0 109 18 141/78 (99) 98 04/26/17 00:11 99.0 86 18 137/72 (93) 98 04/25/17 20:48 99.1 84 18 125/78 (94) 98 04/25/17 19:06 16 04/25/17 17:32 16 04/25/17 16:00 99.0 89 18 123/73 (90) 100 I/O 04/25/17 04/25/17 04/25/17 04/26/17 04/26/17 04/26/17 07:00 15:00 23:00 07:00 15:00 23:00 Intake Total 1022 ml 1000 ml 240 ml 960 ml Output Total 250 ml 1120 ml 1300 ml 1500 ml Balance 772 ml -120 ml -1060 ml -540 ml Intake Oral 720 ml 600 ml 240 ml 960 ml IV Total 302 ml 400 ml Output Urine Total 250 ml 1100 ml 1300 ml 1500 ml Estimated Blood Loss 20 ml # Voids 1 # Bowel Movements 0 0 0 Result Diagram: 04/26/17 0635 04/25/17 0607 Imaging Last Impressions Hip X-Ray 04/25/17 0000 Signed Impressions: Service Date/Time: Tuesday, April 25, 2017 08:43 - CONCLUSION: Anatomic Pasha Solorzano MD FACR Pelvis X-Ray 04/24/171948 Signed Impressions: Service Date/Time: Monday, April 24, 2017 20:09 - CONCLUSION: Probable right intratrochanteric fracture Leeroy Bazan MD Femur X-Ray 04/24/171948 Signed Impressions: Service Date/Time: Monday, April 24, 2017 20:11 - CONCLUSION: Possible intratrochanteric fracture. Leeroy Bazan MD Chest X-Ray 04/24/171948 Signed Impressions: Service Date/Time: Monday, April 24, 2017 20:22 - CONCLUSION: The lungs are clear. No evidence of pneumothorax. Leeroy Bazan MD Objective Remarks General: No acute distress. Heart: Regular rate and rhythm. No murmur. Lungs: Clear to auscultation bilaterally. No wheezes, rales, or rhonchi. Breathing is nonlabored. Abdomen: Soft, nontender, nondistended. Extremities: No lower extremity edema. Right upper leg bandaged. Psych: Alert and oriented. Procedures 04/25/17 Right hip reduction and intramedullary nail fixation Urinary Catheter: No Vascular Central Line Catheter: No A/P Problem List: (1) Fall ICD Code: W19.XXXA - Unspecified fall, initial encounter (2) Hip fracture, right ICD Code: S72.001A - Fracture of unspecified part of neck of right femur, initial encounter for closed fracture (3) Alcohol abuse ICD Code: F10.10 - Alcohol abuse, uncomplicated Status: Acute (4) Tobacco abuse ICD Code: Z72.0 - Tobacco use Assessment and Plan 1. Fall, right hip fracture: Status post right hip reduction with intramedullary nail fixation on 04/25/17. Management per orthopedic surgery. 2. Alcohol abuse: Continue CIWA protocol, seizure/withdrawal precautions. Multivitamin/thiamine/folate. 3. Tobacco abuse: Counseled. 4. Constipation: Bowel regimen. 5. DVT prophylaxis: Lovenox. Discharge Planning Possible discharge home tomorrow if cleared by orthopedic surgery. Spencer Pop MD Apr 26, 2017 14:58
--- NOTE | 2017-04-26 19:42 | RADRPT ---
EXAM DATE/TIME: 04/26/2017 19:02 [facility] COMPARISON: HIP RIGHT (AP&LAT 2/3VWS) WO AP PELVIS, April 25, 2017, 8:43. INDICATIONS : Fall. MEDICAL HISTORY : None. SURGICAL HISTORY : None. ENCOUNTER: Subsequent ACUITY: 1 day PAIN SCORE: 5/10 LOCATION: Right Hip FINDINGS: 2 views of the right hip. Right-sided screws in place. Intertrochanteric fracture again seen. Alignme nt near-anatomic. Hardware intact. CONCLUSION: Postoperative appearance of right sided hip screw across intertrochanteric proximal right femur fract ure. Moody Sharma MD on April 26, 2017 at 19:40 Board Certified Radiologist. This report was verified electronically.
--- NOTE | 2017-04-26 20:21 | RADRPT ---
EXAM DATE/TIME: 04/26/2017 19:29 [facility] COMPARISON: CT BRAIN W/O CONTRAST, October 18, 2015, 18:36. INDICATIONS : Trauma, fall today. RADIATION DOSE: 56.99 CTDIvol (mGy) MEDICAL HISTORY : Seizures. Hypertension. SURGICAL HISTORY : None. ENCOUNTER: Initial ACUITY: 1 day PAIN SCALE: 3/10 LOCATION: Bilateral head TECHNIQUE: Multiple contiguous axial images were obtained of the head. Using automated exposure control and adj ustment of the mA and/or kV according to patient size, radiation dose was kept as low as reasonably a chievable to obtain optimal diagnostic quality images. DICOM format image data is available electro nically for review and comparison. FINDINGS: CEREBRUM: The ventricles are normal for age. No evidence of midline shift, mass lesion, hemorrhage or acute in farction. No extra-axial fluid collections are seen. POSTERIOR FOSSA: The cerebellum and brainstem are intact. The 4th ventricle is midline. The cerebellopontine angle i s unremarkable. EXTRACRANIAL: Complete opacification of the maxillary sinuses. Opacification of the posterior mastoid air cells on the left. SKULL: The calvaria is intact. No evidence of skull fracture. CONCLUSION: 1. No acute intracranial findings. 2. Severe bilateral maxillary sinus disease. Moody Sharma MD on April 26, 2017 at 20:18 Board Certified Radiologist. This report was verified electronically.
[2017-04-27 00:40] VITALS: BP 139/84; PULSE 99; RESP 18; TEMP 96.8; O2SAT 95
[2017-04-27] MEDS: ACETAMINOPHEN/HYDROcodone 325 MG/7.5 MG TAB PO PRN ×5 (00:56→14:17)
[2017-04-27 04:40] VITALS: BP 131/75; PULSE 94; RESP 19; TEMP 98.7; O2SAT 95
[2017-04-27] MEDS: HYDROmorphone HCL PF 2 MG/ML VIAL IV PUSH PRN ×2 (04:40→08:40)
[2017-04-27] MEDS: FOLIC ACID 1 MG TAB PO SCH (08:11)
[2017-04-27] MEDS: ENOXAPARIN SODIUM 30 MG/0.3 ML SYRINGE SQ SCH (08:11)
[2017-04-27] MEDS: SODIUM CHLOR 0.9% 1000 ML INJ 1,000 ML IV SCH (08:12)
[2017-04-27] MEDS: CHOLECALCIFEROL (VIT D3) 5000 UNIT CAP PO SCH (08:12)
[2017-04-27] MEDS: THIAMINE HCL 100 MG TAB PO SCH (08:12)
[2017-04-27] MEDS: DOCUSATE SODIUM 50 MG/SENNA 8.6 MG TAB PO SCH (08:12)
[2017-04-27] MEDS: MULTIVITAMINS/MINERALS THERAPEUTIC TAB PO SCH (08:12)
[2017-04-27] MEDS: SODIUM CHLORIDE 0.9% FLUSH 10 ML FLUSH IV FLUSH SCH (08:12)
--- NOTE | 2017-04-27 08:39 | EKG ---
Date Performed: 04/27/2017 Time Performed: 04:58:20 PTAGE: 51 years EKG: Sinus rhythm with aberrantly conducted supraventricular complexes. Borderline ECG PREVIOUS TRACING : 04/25/2017 05.41 No significant change from previous tracing noted. DOCTOR: Mason Castillo Interpretating Date/Time 04/27/2017 08:38:01
[2017-04-27 08:40] VITALS: BP 140/79; PULSE 80; RESP 18; TEMP 96.3; O2SAT 97
--- NOTE | 2017-04-27 09:04 | HHI.PR ---
Subjective Remarks Follow up fall, hip fracture. The patient fell in his room yesterday. Denies any new pain. He thinks he tripped over the walker, but does not really know what happened. He has no complaints at this time and wants to go home. Objective Vitals Vital Signs Date Time Temp Pulse Resp B/P (MAP) Pulse Ox O2 Delivery O2 Flow Rate FiO2 04/27/17 08:40 96.3 80 18 140/79 (99) 97 04/27/17 04:40 98.7 94 19 131/75 (93) 95 04/27/17 00:40 96.8 99 18 139/84 (102) 95 04/26/17 20:40 99.5 101 18 134/71 (92) 97 04/26/17 19:40 100.0 103 17 137/80 (99) 100 04/26/17 18:55 Room Air 04/26/17 18:25 99.5 98 18 134/78 (96) 97 04/26/17 17:23 111 18 129/86 (100) 100 04/26/17 16:00 98.9 102 18 93/63 (73) 95 04/26/17 12:00 99.5 99 18 123/70 (87) 98 I/O 04/26/17 04/26/17 04/26/17 04/27/17 04/27/17 04/27/17 07:00 15:00 23:00 07:00 15:00 23:00 Intake Total 960 ml 600 ml 240 ml 360 ml Output Total 1500 ml 300 ml Balance -540 ml 600 ml 240 ml 60 ml Intake Oral 960 ml 600 ml 240 ml 360 ml Output Urine Total 1500 ml 300 ml # Voids 6 1 # Bowel Movements 0 0 0 1 Result Diagram: 04/26/17 0635 04/25/17 0607 Imaging Last Impressions Hip X-Ray 04/26/17 0000 Signed Impressions: Service Date/Time: Wednesday, April 26, 2017 19:02 - CONCLUSION: Postoperative appearance of right sided hip screw across intertrochanteric proximal right femur fracture. Moody Sharma MD Head CT 04/26/17 0000 Signed Impressions: Service Date/Time: Wednesday, April 26, 2017 19:29 - CONCLUSION: 1. No acute intracranial findings. 2. Severe bilateral maxillary sinus disease. Moody Sharma MD Pelvis X-Ray 04/24/171948 Signed Impressions: Service Date/Time: Monday, April 24, 2017 20:09 - CONCLUSION: Probable right intratrochanteric fracture Leeroy Bazan MD Femur X-Ray 04/24/171948 Signed Impressions: Service Date/Time: Monday, April 24, 2017 20:11 - CONCLUSION: Possible intratrochanteric fracture. Leeroy Bazan MD Chest X-Ray 04/24/171948 Signed Impressions: Service Date/Time: Monday, April 24, 2017 20:22 - CONCLUSION: The lungs are clear. No evidence of pneumothorax. Leeroy Bazan MD Objective Remarks General: No acute distress. Heart: Regular rate and rhythm. No murmur. Lungs: Clear to auscultation bilaterally. No wheezes, rales, or rhonchi. Breathing is nonlabored. Abdomen: Soft, nontender, nondistended. Extremities: No lower extremity edema. SCDs. Psych: Alert and oriented. Procedures 04/25/17 Right hip reduction and intramedullary nail fixation Urinary Catheter: No Vascular Central Line Catheter: No A/P Problem List: (1) Fall ICD Code: W19.XXXA - Unspecified fall, initial encounter (2) Hip fracture, right ICD Code: S72.001A - Fracture of unspecified part of neck of right femur, initial encounter for closed fracture (3) Alcohol abuse ICD Code: F10.10 - Alcohol abuse, uncomplicated Status: Acute (4) Tobacco abuse ICD Code: Z72.0 - Tobacco use Assessment and Plan 1. Fall, right hip fracture: Status post right hip reduction with intramedullary nail fixation on 04/25/17. Management per orthopedic surgery. Patient fell again yesterday, but no new injuries apparent. Continue PT. 2. Alcohol abuse: Continue CIWA protocol, seizure/withdrawal precautions. Multivitamin/thiamine/folate. 3. Tobacco abuse: Counseled. 4. Constipation: Bowel regimen. 5. DVT prophylaxis: Lovenox. Discharge Planning Possible discharge home today if cleared by orthopedic surgery and we can get his prescriptions filled. Spencer Pop MD Apr 27, 2017 09:04
[2017-04-27 10:56] LABS: AUTOMATED NEUTROPHIL # 4.4 TH/MM3 (1.8-7.7); BASOPHIL # 0.1 TH/MM3 (0-0.2); BASOPHIL % 0.9 % (0.0-2.0); EOSINOPHIL # 0.2 TH/MM3 (0-0.4); EOSINOPHIL % 3.3 % (0.0-4.0); HEMATOCRIT 28.4 % (39.0-51.0); LYMPH % 16.4 % (9.0-44.0); LYMPHOCYTE # 1.1 TH/MM3 (1.0-4.8); MEAN CELL VOLUME 99.6 FL (80.0-100.0); MEAN CORPUSCULAR HGB CONC 35.2 % (32.0-36.0); MEAN PLATELET VOLUME 7.4 FL (7.0-11.0); MONO % 15.1 % (0.0-8.0); NEUT % 64.3 % (16.0-70.0); PLATELET COUNT 290 TH/MM3 (150-450); RED BLOOD COUNT 2.85 MIL/MM3 (4.50-5.90); RED CELL DISTRIBUTION WIDTH 12.7 % (11.6-17.2); WHITE BLOOD COUNT 6.8 TH/MM3 (4.0-11.0)
[2017-04-27 11:20] LABS: BICARBONATE 31.6 MEQ/L (21.0-32.0); CALCIUM 8.9 MG/DL (8.5-10.1); CREATININE 0.62 MG/DL (0.60-1.30)
[2017-04-27] MEDS ORDERED: POTASSIUM CHLORIDE 20 MEQ CONTROLLED RELEASE TAB PO ONE (11:45)
[2017-04-27 12:00] VITALS: BP 139/73; PULSE 80; RESP 17; TEMP 97.5; O2SAT 97
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
[2017-04-27] MEDS ORDERED: THIA100 PO (12:36)
[2017-04-27] MEDS ORDERED: FOLI1TAB6 PO (12:36)
[2017-04-27 12:40] VITALS: BP 139/73; PULSE 80; RESP 17; TEMP 97.5; O2SAT 97
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
[2017-04-27 16:40] VITALS: BP 133/75; PULSE 82; RESP 18; TEMP 97.6; O2SAT 98
== END 2017-04-27 16:45 | disposition home or self-care (01) | DRG 482 ==
LOC: NEPC 19:24 → NEDA 21:48 → N06B 22:47 → N06A 04-26 17:51
PROVIDERS: ADMIT Family Medicine; ATTEND Family Medicine
PROC: 0QS606Z Reposition Right Upper Femur with Intramedullary Internal Fixation Device, Open Approach (ICD-10-PCS; principal; 2017-04-25 08:10)
DX: S72.141A Displaced intertrochanteric fracture of right femur, initial encounter for closed fracture (principal); W03.XXXA Other fall on same level due to collision with another person, initial encounter; Y93.89 Activity, other specified; F10.10 Alcohol abuse, uncomplicated; Y92.89 Other specified places as the place of occurrence of the external cause; F17.210 Nicotine dependence, cigarettes, uncomplicated; K59.00 Constipation, unspecified; W18.30XA Fall on same level, unspecified, initial encounter
CPT/HCPCS: 70450; 71010; 72170; 73502; 73552; 76000; 80048; 80053; 81001; 82306; 85014; 85018; 85025; 85610; 85730; 86850; 86900; 86901; 93005; 96361; 96374; 96375; 96376; C1713; J1170; J1650; J2175; J2270; J2405; J3370; J7030

== ENCOUNTER 2018-02-26 06:06 | Observation (INO) ==
[2018-02-26] MEDS ORDERED: Thiamine Inj 100 MG in Sodium Chlor 0.9% Inj 100 ML IV.SIG ONE (06:23)
[2018-02-26] MEDS ORDERED: Sod Chloride 0.9% Inj 1,000 ML IV.SIG ONE (06:23)
[2018-02-26 06:45] LABS: Baso # (Auto) 0.1 th/mm3 (0.0-0.2); Eos # (Auto) 0.2 th/mm3 (0.0-0.4); Eos % (Auto) 2.9 % (0.0-4.0); Hematocrit 39.5 % (39.0-51.0); Hemoglobin 13.8 gm/dL (13.0-17.0); Lymph # (Auto) 1.7 th/mm3 (1.0-4.8); Lymph % (Auto) 27.6 % (9.0-44.0); Mean Corpuscular HGB Conc 34.9 % (32.0-36.0); Mean Corpuscular Hemoglobin 37.6 pg (27.0-34.0); Mean Corpuscular Volume 107.7 fL (80.0-100.0); Mean Platelet Volume 7.2 fL (7.0-11.0); Mono # (Auto) 1.2 th/mm3 (0.0-0.9); Mono % (Auto) 18.7 % (0.0-8.0); Neut % (Auto) 48.8 % (16.0-70.0); Platelet Count 223 th/mm3 (150-450); Red Blood Count 3.67 mil/mm3 (4.50-5.90); Red Cell Distribution Width 14.6 % (11.6-17.2); White Blood Count 6.2 th/mm3 (4.0-11.0)
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
[2018-02-26 06:58] LABS: Chloride 103 meq/L (98-107); Potassium 3.8 meq/L (3.5-5.1); Sodium 137 meq/L (136-145)
[2018-02-26 06:59] LABS: Bilirubin,Urine Negative (Negative); Clarity,Urine Clear (Clear); Glucose,Urine (UA) Negative (Negative); Leukocyte Esterase,Urine Negative (Negative); Nitrite,Urine Negative (Negative); Specific Gravity,Urine Less/Equal 1.005 (1.002-1.035); Urobilinogen,Urine 0.2 mg/dL (Less than 2)
[2018-02-26 07:00] LABS: Color,Urine Straw (Yellw/Straw)
--- NOTE | 2018-02-26 07:00 | CT ---
EXAM DATE: 02/26/2018 6:55 AM EDT AGE/SEX: 52 years / Male INDICATIONS: Possible seizure within last hour. CLINICAL DATA: This is the patient's initial encounter. Patient reports that signs and symptoms have been present for 1 day and indicates a pain score of 5/10. MEDICAL/SURGICAL HISTORY: . Alcohol abuse. Anxiety. Chronic pain. Femur fracture. Hip fracture. . RADIATION DOSE: 51.39 CTDI (mGy) [place] [facility] [place]26/[place]. . TECHNIQUE: CT of the head without contrast. Using automated exposure control and adjustment of the mA and/or kV according to patient size, radiation dose was kept as low as reasonably achievable to ob tain optimal diagnostic quality images. DICOM format image data is available electronically for revi ew and comparison. FINDINGS: Cerebrum: The ventricles are normal for age. No evidence of midline shift, mass lesion, hemorrhage or acute infarction. No extraaxial fluid collections are seen. Posterior Fossa: The cerebellum and brainstem are intact. The 4th ventricle is midline. The cerebe llopontine angle is unremarkable. Extracranial: The visualized portion of the orbits is intact. Bilateral maxillary sinus opacificatio n, similar to prior in April 2017. Skull: The calvaria is intact. No evidence of skull fracture. CONCLUSION: 1. No acute findings in the brain. 2. Chronic bilateral maxillary sinus disease. . Electronically signed by: Leeroy Bazan MD 02/26/2018 6:59 AM EDT
[2018-02-26 07:02] LABS: Anion Gap 10 meq/L (5-15); Blood Urea Nitrogen 12 mg/dL (7-18); Calcium 8.7 mg/dL (8.5-10.1); Carbon Dioxide 24.3 meq/L (21.0-32.0); Glucose,Random 92 mg/dL (74-106); Magnesium 2.1 mg/dL (1.5-2.5)
[2018-02-26 07:05] LABS: Collection Time,Urine 640 hours
[2018-02-26 07:05] LABS: Alanine Aminotransferase 86 U/L (12-78); Aspartate Aminotransferase 182 U/L (15-37); Glomerular Filtration Rate Greater Than 89 mL/min (>89)
[2018-02-26 07:06] LABS: Barbiturate Screen,Urine Neg (Neg); Cannabinoid Screen,Urine Neg (Neg); Cocaine Screen,Urine Neg (Neg); Squamous Epithelial Cell,Urine 0-5 /hpf (0-5)
[2018-02-26 07:07] LABS: Total Protein 7.7 g/dL (6.4-8.2)
[2018-02-26 07:07] LABS: Amphetamine Screen,Urine Neg (Neg)
[2018-02-26 07:08] LABS: Alkaline Phosphatase 178 U/L (45-117)
[2018-02-26 07:10] LABS: Alcohol 104 mg/dL (0-5)
[2018-02-26 07:10] LABS: Opiate Screen,Urine Neg (Neg)
[2018-02-26] MEDS ORDERED: Ketorolac Inj 30 MG/ML (IVP) Vial IV.PUSH ONE (07:43)
--- NOTE | 2018-02-26 08:44 | CT ---
EXAM DATE: 02/26/2018 8:31 AM EDT AGE/SEX: 52 years / Male INDICATIONS: Right lower quadrant pain. Nausea. CLINICAL DATA: This is the patient's initial encounter. Patient reports that signs and symptoms have been present for 1 week and indicates a pain score of 7/10. MEDICAL/SURGICAL HISTORY: Hypertension. . Right hip replacement. ORAL CONTRAST: No oral contrast ingested. RADIATION DOSE: 4.75 CTDI (mGy) COMPARISON: [facility], CT ABDOMEN & PELVIS W CONTRAST, 12/23/2017. . TECHNIQUE: Multiple contiguous axial images were obtained through the abdomen and pelvis following b olus infusion of 90 ml Omnipaque 350 (iohexol) nonionic water-soluble contrast as a single exam dos e. No oral contrast ingested. Using automated exposure control and adjustment of the mA and/or kV ac cording to patient size, radiation dose was kept as low as reasonably achievable to obtain optimal di agnostic quality images. DICOM format image data is available electronically for review and comparis on. FINDINGS: There is bilateral L5 spondylolysis. Postsurgical changes to the right hip are noted. No pleural or p ericardial effusions. Hepatomegaly and hepatic steatosis. Gallbladder is contracted. The adrenals, ki dneys, spleen, pancreas are unremarkable. Diffuse atherosclerotic calcifications of the aorta are not ed. Urinary bladder unremarkable. Prostatic calcifications are seen. There is no evidence of bowel ob struction free fluid or free air. The appendix is normal in appearance. There is no adenopathy or ane urysm. CONCLUSION: 1. Hepatic steatosis and hepatomegaly. 2. Atherosclerosis. 3. No inflammatory changes are seen in the abdomen or pelvis. Electronically signed by: Michael Campuzano MD 02/26/2018 8:43 AM EDT
[2018-02-26] MEDS ORDERED: Haloperidol Inj 5 MG/ML Ampul IV.PUSH PRN (09:36)
[2018-02-26] MEDS ORDERED: Docusate Sodium 100 MG Capsule PO PRN (11:42)
[2018-02-26] MEDS: chlordiazePOXIDE 25 MG Capsule PO SCH ×3 (12:46→23:16)
[2018-02-26] MEDS: Acetaminophen 325 MG Tablet PO PRN ×2 (12:46→20:02)
--- NOTE | 2018-02-26 12:51 | P.HP ---
History of Present Illness Primary Care Physician: No Primary Care Physician Chief Complaint: Woke up on the ground History of Present Illness: 52-year-old chronic alcoholic who presented to the hospital because of waking up on the ground. Patient states that he was watching the [employer] game last night and drank quite a bit of beer and had a few shots. He went to bed last night and he woke up on the ground this morning. Because of that reason he came to the emergency department for evaluation. Patient indicates that approximate 2 weeks ago he was intoxicated and he fell down and hit the front part of his head. Since then he states that he is been having problems with blurred vision, extremity tremors, he states that one of his friends noticed him having a possible tremors/seizure activity. Patient states that he woke up this morning he did not have any loss of bowel or bladder control, no muscle aches, no biting of his tongue or blood in his mouth. Patient indicates that he has been through alcohol withdrawal before and usually takes proxy 9 days in order for him to completely get through withdrawals. - Diagnosis (1) Alcohol intoxication Review of Systems All other systems reviewed negative except as stated in HPI Eyes: Reports blurry vision Neurologic: Reports other (Alcohol blackouts) [facility] - History History Provided By: Patient - Medical History Medical History: Medical History (Last Reviewed 02/26/18 @ 06:52 by Sury Montalvo MD) Alcohol abuse Anxiety Chronic pain Chronic pain of right lower extremity Hx of fracture of femur Hx of fracture of hip - Surgical History Surgical History: Surgical History (Last Updated 02/26/18 @ 12:45 by XIAO Ramos) Hx of fracture of femur Hx of fracture of hip - Family History Family History: Family History (Last Updated 02/26/18 @ 12:45 by XIAO Ramos) Mother Family history of stroke Father Family history of chronic obstructive pulmonary disease - Tobacco History Second Hand Smoke Exposure: No Tobacco Use In Past 30 Days: Yes Smoking Status: Current every day smoker Tobacco Type: Cigarettes Packs Per Day: 0.5 Years Smoked: 35 - Alcohol History How Often Do You Have a Drink Containing Alcohol: 4 or more times a week - Substance Use History Substance History: Active Abuse - Substance Use Type Alcohol Status: Active Route Used: By Mouth Frequency: 18 -20 beers daily with frequent liquor Reason for Use: Calm Down Comment: mother last may, drinks more since mother passing away - Travel History Recent Travel in the [place] Within the Last 8 Weeks: No Recent Travel Out of the Country Within the Last 8 Weeks: No - Immunization History Tetanus Immunization: <5 Years Medications and Allergies Active Medications: Active Medications Acetaminophen (Tylenol) 650 mg PO Q4H PRN PRN Reason: Temp > 100.4 Al Hydroxide/Mg Hydroxide (Milk Of Magnkrystal Liq) 30 ml PO DAILY PRN PRN Reason: SEVERE CONSITIPATION Calcium Carbonate (Tums Chew) 1,000 mg CHEW TID PRN PRN Reason: DYSPEPSIA Chlordiazepoxide (Librium) 25 mg PO Q6HR KELY Docusate Sodium (Colace) 100 mg PO BID PRN PRN Reason: CONSTIPATION Flumazenil (Romazecon Inj) 0.2 mg IV.PUSH Q1M PRN PRN Reason: OVERSEDATION Haloperidol Lactate (Haldol Inj) 1 mg IV.PUSH Q15M PRN PRN Reason: for severe agitation Lorazepam (Ativan) 1 mg PO Q4H PRN PRN Reason: for CIWA 8-10 Lorazepam (Ativan) 2 mg PO Q2H PRN PRN Reason: for CIWA 11-14 Lorazepam (Ativan Inj) 2 mg IV.PUSH Q2H PRN PRN Reason: for CIWA 11-14 Lorazepam (Ativan Inj) 2 mg IV.PUSH Q1H PRN PRN Reason: for CIWA 15-20 Lorazepam (Ativan Inj) 1 mg IV.PUSH Q4H PRN PRN Reason: for CIWA 8-10 Lorazepam (Ativan Inj) 2 mg IV.PUSH Q15M PRN PRN Reason: for CIWA > 20 Nicotine (Habitrol 21 Mg Patch.24 Hr) 1 patch T-DERMAL DAILY KELY Ondansetron HCl (Zofran Inj) 4 mg IV.PUSH Q6H PRN PRN Reason: NAUSEA Patch Removal (Remove Old Patch) 1 each T-DERMAL DAILY KELY Sodium Chloride (Ns Flush) 2 ml IV.FLUSH PRN PRN PRN Reason: FLUSH AFTER USING IV ACCESS Last Admin: 02/26/18 07:50 Dose: 2 ml Allergies Allergy/AdvReac Type Severity Reaction Status Date / Time penicillin G Allergy Unknown Anaphylaxis Verified 02/26/18 07:01 Home Medications Medication Instructions Recorded Confirmed Type No Known Home Medications 02/26/18 02/26/18 History Exam Vital signs: Vital Signs 02/26/18 06:10 02/26/18 06:46 02/26/18 07:56 Temperature 98.2 F Pulse Rate 93 H 81 Respiratory Rate 22 Blood Pressure 148/92 H Pulse Oximetry 98 99 02/26/18 08:52 02/26/18 09:00 02/26/18 09:38 Temperature Pulse Rate 85 84 Respiratory Rate 16 16 Blood Pressure 136/74 Pulse Oximetry 97 02/26/18 10:34 Temperature Pulse Rate 95 H Respiratory Rate 16 Blood Pressure 113/74 Pulse Oximetry Intake & Output 02/25/18 02/26/18 02/26/18 18:59 06:59 18:59 Intake Total 1101 / 1101 Output Total 1100 / 1100 Balance Weight 46.4 kg Intake: IV 1101 / 1101 NS Inj 1,000 ML @ Wide Open IV. 1000 / 1000 SIG BOLUS ONE Rx#:[id number] Thiamine Inj 100 MG In NS Inj 101 / 101 100 ML @ 100 mls/hr IV.SIG ONCE ONE Rx#:[id number] Output: Urine 1100 / 1100 Narrative: GENERAL: Well-developed, well-nourished, in no acute distress. alert and orientated HEENT: Head is normocephalic without any lesions or masses noted. Facial features are symmetric. Eyes: Pupils equal round reactive to light. Extraocular muscles are intact. Conjunctivae were clear. Oropharyngeal: Pharynx without any erythema edema. Tongue is midline without deviation. Buccal mucosa is moist without any masses or lesions NECK: Supple without any masses. Trachea midline no deviation. No JVD, no bruits are appreciated CARDIAC: Regular rhythm, regular rate. S1/S2 are heard. No murmurs gallops or rubs. LUNGS: Clear to auscultation bilaterally. No wheeze, rhonchi or rales. No use of accessory muscles on inspiration or expiration. ABDOMEN: Soft, nontender. Nondistended. Bowel sounds heard in all 4 quadrants. No organomegaly or masses. Negative rebound, negative guarding EXTREMITIES: No edema, pulses are equal bilaterally. No cyanosis or clubbing NEUROLOGY: Mood and affect appear appropriate. Cranial nerves II through XII grossly intact. Muscle strength 5/5 in upper and lower extremities bilaterally. Deep tendon reflexes are 2+ in upper and lower extremities bilaterally. Results - Labs CBC & Chem 7: 02/26/18 06:30 02/26/18 06:30 Labs: Laboratory Results - last 24 hr 02/26/18 02/26/18 02/26/18 06:30 06:30 06:30 CBC w Diff Auto diff final WBC 6.2 RBC 3.67 L Hgb 13.8 Hct 39.5 MCV 107.7 H MCH 37.6 H MCHC 34.9 RDW 14.6 Plt Count 223 MPV 7.2 Neut % (Auto) 48.8 Lymph % (Auto) 27.6 [place] % (Auto) 18.7 H Eos % (Auto) 2.9 Baso % (Auto) 2.0 Neut # (Auto) 3.0 Lymph # (Auto) 1.7 [place] # (Auto) 1.2 H Eos # (Auto) 0.2 Baso # (Auto) 0.1 WBC Differential . Differential Comment . Sodium 137 Potassium 3.8 Chloride 103 Carbon Dioxide 24.3 Anion Gap 10 BUN 12 Creatinine 0.63 Estimated GFR Greater than 89 POC Glucose Random Glucose 92 Calcium 8.7 Magnesium 2.1 Total Bilirubin 0.6 AST 182 H ALT 86 H Alkaline Phosphatase 178 H Troponin I Less than 0.02 L Total Protein 7.7 Albumin 4.0 Ur Collection Type Urine Color Urine Clarity Urine pH Ur Specific [place] Urine Protein Urine Glucose (UA) Urine Ketones Urine Occult Blood Urine Nitrate Urine Bilirubin Urine Urobilinogen Ur Leukocyte Esterase Ur Squamous Epith Cells Ur Microscopic Review Urine Collection Time Urine Opiates Screen Ur Barbiturates Screen Ur Amphetamines Screen U Benzodiazepines Scrn Urine Cocaine Screen U Cannabinoids Screen Serum Alcohol 104 H 02/26/18 02/26/18 02/26/18 06:35 06:35 06:36 CBC w Diff WBC RBC Hgb Hct MCV MCH MCHC RDW Plt Count MPV Neut % (Auto) Lymph % (Auto) [place] % (Auto) Eos % (Auto) Baso % (Auto) Neut # (Auto) Lymph # (Auto) [place] # (Auto) Eos # (Auto) Baso # (Auto) WBC Differential Differential Comment Sodium Potassium Chloride Carbon Dioxide Anion Gap BUN Creatinine Estimated GFR POC Glucose 97 Random Glucose Calcium Magnesium Total Bilirubin AST ALT Alkaline Phosphatase Troponin I Total Protein Albumin Ur Collection Type Clean catch Urine Color Straw Urine Clarity Clear Urine pH 6.0 Ur Specific [place] Less/equal 1.005 Urine Protein Negative Urine Glucose (UA) Negative Urine Ketones Negative Urine Occult Blood Negative Urine Nitrate Negative Urine Bilirubin Negative Urine Urobilinogen 0.2 Ur Leukocyte Esterase Negative Ur Squamous Epith Cells 0-5 Ur Microscopic Review Microscopic reviewed Urine Collection Time 640 Urine Opiates Screen Neg Ur Barbiturates Screen Neg Ur Amphetamines Screen Neg U Benzodiazepines Scrn Neg Urine Cocaine Screen Neg U Cannabinoids Screen Neg Serum Alcohol - Imaging Impressions Head CT 02/26/18 06:23 CONCLUSION: 1. No acute findings in the brain. 2. Chronic bilateral maxillary sinus disease. . Abdomen/Pelvis CT 02/26/18 07:49 CONCLUSION: 1. Hepatic steatosis and hepatomegaly. 2. Atherosclerosis. 3. No inflammatory changes are seen in the abdomen or pelvis. Caprini VTE Risk Assessment Caprini VTE Risk Assessment: No/Low Risk (score <= 1) Caprini Risk Assessment Model: Point Value = 1 Point Value = 2 Point Value = 3 Point Value = 5 Age 41-60 Minor surgery BMI > 25 kg/m2 Swollen legs Varicose veins or History of unexplained or recurrent spontaneous Oral contraceptives or hormone replacement Sepsis (< 1 month) Serious lung disease, including pneumonia (< 1 month) Abnormal pulmonary function Acute myocardial infarction Congestive heart failure (< 1 month) History of inflammatory bowel disease Medical patient at bed rest Age 61-74 Arthroscopic surgery Major open surgery (> 45 min) Laparoscopic surgery (> 45 min) Malignancy Confined to bed (> 72 hours) Immobilizing plaster cast Central venous access Age >= 75 History of VTE Family history of VTE Factor V Leiden Prothrombin [id number] Lupus anticoagulant Anticardiolipin antibodies Elevated serum homocysteine Heparin-induced thrombocytopenia Other congenital or acquired thrombophilia Stroke (< 1 month) Elective arthroplasty Hip, pelvis, or leg fracture Acute spinal cord injury (< 1 month) Prophylaxis Regimen: Total Risk Factor Score Risk Level Prophylaxis Regimen 0-1 Low Early ambulation 2 Moderate Order ONE of the following: *Sequential Compression Device (SCD) *Heparin 5000 units SQ BID 3-4 Higher Order ONE of the following medications: *Heparin 5000 units SQ TID *Enoxaparin/Lovenox 40 mg SQ daily (WT < 150 kg, CrCl > 30 mL/min) *Enoxaparin/Lovenox 30 mg SQ daily (WT < 150 kg, CrCl > 10-29 mL/min) *Enoxaparin/Lovenox 30 mg SQ BID (WT < 150 kg, CrCl > 30 mL/min) AND/OR *Sequential Compression Device (SCD) 5 or more Highest Order ONE of the following medications: *Heparin 5000 units SQ TID (Preferred with Epidurals) *Enoxaparin/Lovenox 40 mg SQ daily (WT < 150 kg, CrCl > 30 mL/min) *Enoxaparin/Lovenox 30 mg SQ daily (WT < 150 kg, CrCl > 10-29 mL/min) *Enoxaparin/Lovenox 30 mg SQ BID (WT < 150 kg, CrCl > 30 mL/min) AND *Sequential Compression Device (SCD) Assessment and Plan - Assessment (1) Alcohol intoxication Code(s): F10.929 - Alcohol use, unspecified with intoxication, unspecified Status: Acute - Plan Alcohol intoxication -Patient has long-standing history of alcohol abuse with recurrent episodes of blacking out, alcohol withdrawal -We will start Librium 25 mg every 6 hours -[facility] protocol -Start thiamine and folic acid -Monitor for withdrawal/seizure Closed head injury -Patient with blurred vision, extremity tremors, episodes of blacking out, possible seizure -CT of the brain did not indicate any acute abnormality -Continue monitor telemetry -Monitor neurological function -Monitor for any seizures Chronic tobacco use -Start nicotine patch -Patient counseled on cessation DVT prevention -Subcutaneous heparin
[2018-02-26] MEDS: Heparin - SQ 10,000 UNITS/ML Vial SQ SCH (20:02)
[2018-02-27] MEDS: chlordiazePOXIDE 25 MG Capsule PO SCH ×4 (05:51→23:44)
--- NOTE | 2018-02-27 07:54 | P.PN ---
Subjective Interval history: 52-year-old male who is seen and examined today for follow-up on alcohol intoxication/withdrawal. Patient still with significant CIWA score up to 16 periodically. Patient still receiving IV Ativan, Librium. Patient is requesting that we try to arrange evaluation for [facility] inpatient treatment. Patient states that if he does not get into treatment immediately upon getting out of the hospital he will just go back to drinking again. Vital signs appear to be stable. Patient remains afebrile. Physical Exam Vital signs: Vital Signs 02/26/18 07:56 02/26/18 08:52 02/26/18 09:00 Temperature Pulse Rate 81 85 Respiratory Rate 16 Blood Pressure Pulse Oximetry 02/26/18 09:38 02/26/18 10:34 02/26/18 12:00 Temperature 98.6 F Pulse Rate 84 95 H 85 Respiratory Rate 16 16 20 Blood Pressure 136/74 113/74 114/83 Pulse Oximetry 97 97 02/26/18 16:00 02/26/18 16:17 02/26/18 20:00 Temperature 98.6 F 98.3 F Pulse Rate 91 H 90 Respiratory Rate 20 18 20 Blood Pressure 135/87 139/91 H Pulse Oximetry 96 98 02/27/18 00:00 02/27/18 04:00 Temperature 97.9 F 96.9 F L Pulse Rate 98 H 87 Respiratory Rate 20 20 Blood Pressure 137/72 140/82 Pulse Oximetry 98 99 Intake & Output 02/26/18 02/27/18 02/27/18 18:59 06:59 18:59 Intake Total 3061 / 3061 240 / 240 Output Total 3900 / 3900 2200 / 2200 700 / 700 Balance -839 / -839 -1959 / -1960 -700 / -700 Weight 95.2 kg 95 kg Intake: IV 1101 / 1101 NS Inj 1,000 ML @ Wide Open IV. 1000 / 1000 SIG BOLUS ONE Rx#:[id number] Thiamine Inj 100 MG In NS Inj 101 / 101 100 ML @ 100 mls/hr IV.SIG ONCE ONE Rx#:[id number] Oral 1959 240 / 240 Output: Urine 3900 / 3900 2200 / 2200 700 / 700 Other: Date of Last Bowel Movement 02/24/18 Weight On Admission 95.2 kg Narrative: GENERAL: Well-developed, well-nourished, in no acute distress. alert and orientated HEENT: Head is normocephalic without any lesions or masses noted. Facial features are symmetric. Eyes: Extraocular muscles are intact. Conjunctivae were clear. NECK: Supple without any masses. Trachea midline no deviation. No JVD, CARDIAC: Regular rhythm, regular rate. S1/S2 are heard. No murmurs gallops or rubs. LUNGS: Clear to auscultation bilaterally. No wheeze, rhonchi or rales. No use of accessory muscles on inspiration or expiration. ABDOMEN: Soft, nontender. Nondistended. Bowel sounds heard in all 4 quadrants. No organomegaly or masses. Negative rebound, negative guarding EXTREMITIES: No edema, pulses are equal bilaterally. No cyanosis or clubbing NEUROLOGY: Mood and affect appear appropriate. Cranial nerves II through XII grossly intact. Moving all extremities, speech is clear Results - Labs CBC & Chem 7: 02/26/18 06:30 02/26/18 06:30 Laboratory Results - last 24 hr 02/26/18 06:30 Troponin I Less than 0.02 L - Imaging Impressions Abdomen/Pelvis CT 02/26/18 07:49 CONCLUSION: 1. Hepatic steatosis and hepatomegaly. 2. Atherosclerosis. 3. No inflammatory changes are seen in the abdomen or pelvis. Assessment and Plan - Assessment (1) Alcohol intoxication Code(s): F10.929 - Alcohol use, unspecified with intoxication, unspecified Status: Acute - Plan Alcohol intoxication/withdrawal -Patient has long-standing history of alcohol abuse with recurrent episodes of blacking out, alcohol withdrawal -Continue Librium 25 mg every 6 hours -[facility] protocol -Continue thiamine and folic acid -Monitor for withdrawal/seizure Closed head injury -Patient with blurred vision, extremity tremors, episodes of blacking out, possible seizure -CT of the brain did not indicate any acute abnormality -Continue monitor telemetry -Monitor neurological function -Monitor for any seizures -Awaiting EEG Chronic tobacco use -Continue nicotine patch -Patient counseled on cessation DVT prevention -Subcutaneous heparin
[2018-02-27] MEDS: Heparin - SQ 10,000 UNITS/ML Vial SQ SCH ×2 (08:08→20:02)
--- NOTE | 2018-02-27 10:53 | MG ---
cc: Karl Carroll MD EEG NUMBER: 51 INDICATION: Possible seizure versus syncope. Alcohol use. Thiamine, Librium, Ativan. FINDINGS: Diffuse alpha and beta rhythms are noted. Recording overall is synchronous and symmetric. Photic stimulation is performed without significant posterior driving. No hemisphere asymmetries are seen. The patient falls asleep, but does not reach stage II sleep. IMPRESSION: Normal awake and sleep electroencephalogram. No evidence for a focal or diffuse abnormality. Karl Davidson. MD Glen DJSunny/sv/mino , 08:51 AM , 08:55 AM
[2018-02-28] MEDS: chlordiazePOXIDE 25 MG Capsule PO SCH ×4 (05:38→23:41)
--- NOTE | 2018-02-28 08:00 | P.PN ---
Subjective Interval history: 52-year-old male seen and examined today for alcohol withdrawal. Patient states that he has had a rough couple of nights. I did review all his CIWA scores, he has had fluctuation anywhere from 2-16. Upon evaluating patient does not appear to have any significant clinical findings at this time. Vital signs are stable. Patient remains afebrile. Physical Exam Vital signs: Vital Signs 02/27/18 08:00 02/27/18 08:09 02/27/18 09:00 Temperature 96.6 F L Pulse Rate 88 76 Respiratory Rate 18 Blood Pressure 137/87 Pulse Oximetry 97 99 02/27/18 12:00 02/27/18 16:00 02/27/18 19:24 Temperature 97.1 F L 98.5 F Pulse Rate 92 H 95 H Respiratory Rate 20 20 Blood Pressure 127/77 133/82 Pulse Oximetry 98 97 99 02/27/18 20:00 02/28/18 00:00 02/28/18 04:00 Temperature 97.8 F 97.7 F 97.2 F L Pulse Rate 100 H 117 H 94 H Respiratory Rate 20 20 18 Blood Pressure 125/73 131/78 136/85 Pulse Oximetry 96 96 97 02/28/18 07:50 Temperature Pulse Rate Respiratory Rate Blood Pressure Pulse Oximetry 99 Intake & Output 02/27/18 02/28/18 02/28/18 18:59 06:59 18:59 Intake Total 1080 / 1080 960 / 960 Output Total 3600 / 3600 1550 / 1550 Balance -2520 / -2520 -590 / -590 Weight 58.3 kg Intake: Oral 1080 / 1080 960 / 960 Output: Urine 3600 / 3600 1550 / 1550 Other: # Voids 1 Date of Last Bowel Movement 02/27/18 # Bowel Movements 1 Narrative: GENERAL: Well-developed, well-nourished, in no acute distress. alert and orientated HEENT: Head is normocephalic without any lesions or masses noted. Facial features are symmetric. Eyes: Extraocular muscles are intact. Conjunctivae were clear. NECK: Supple without any masses. Trachea midline no deviation. No JVD, CARDIAC: Regular rhythm, regular rate. S1/S2 are heard. No murmurs gallops or rubs. LUNGS: Clear to auscultation bilaterally. No wheeze, rhonchi or rales. No use of accessory muscles on inspiration or expiration. ABDOMEN: Soft, nontender. Nondistended. Bowel sounds heard in all 4 quadrants. No organomegaly or masses. Negative rebound, negative guarding EXTREMITIES: No edema, pulses are equal bilaterally. No cyanosis or clubbing NEUROLOGY: Mood and affect appear appropriate. Cranial nerves II through XII grossly intact. Moving all extremities, speech is clear Results - Labs CBC & Chem 7: 02/26/18 06:30 02/26/18 06:30 Assessment and Plan - Assessment (1) Alcohol intoxication Code(s): F10.929 - Alcohol use, unspecified with intoxication, unspecified Status: Acute - Plan Alcohol intoxication/withdrawal -Patient has long-standing history of alcohol abuse with recurrent episodes of blacking out, alcohol withdrawal -Continue Librium 25 mg every 6 hours -[facility] protocol -Continue thiamine and folic acid -Monitor for withdrawal/seizure Closed head injury -Patient with blurred vision, extremity tremors, episodes of blacking out, possible seizure -CT of the brain did not indicate any acute abnormality -Continue monitor telemetry -Monitor neurological function -Monitor for any seizures -EEG:Normal awake and sleep electroencephalogram. No evidence for a focal or diffuse abnormality. Chronic tobacco use -Continue nicotine patch -Patient counseled on cessation DVT prevention -Subcutaneous heparin
[2018-02-28] MEDS: Folic Acid 1 MG Tablet PO SCH (08:26)
[2018-02-28] MEDS: Heparin - SQ 10,000 UNITS/ML Vial SQ SCH ×2 (08:27→21:42)
[2018-02-28] MEDS: LORazepam 1 MG Tablet PO PRN ×3 (14:11→22:37)
[2018-03-01] MEDS: chlordiazePOXIDE 25 MG Capsule PO SCH ×4 (06:06→23:39)
--- NOTE | 2018-03-01 07:49 | P.PN ---
Subjective Interval history: 52-year-old male who is seen and examined today for follow-up on alcohol withdrawal. Patient indicates that he is still having a very rough time and is requesting that we give him 2 mg of Ativan at a time. Upon evaluation the patient does not have any clinical signs of detox. He is eating quite well. He does not have any extremity tremors. Nose nystagmus. Nursing staff indicates that they believe that he is exaggerating his symptoms in order to get increased dosages of Ativan. Vital signs are stable. There is no blood pressure elevation indicate any alcohol withdrawal. Patient remains afebrile. Physical Exam Vital signs: Vital Signs 02/28/18 07:50 02/28/18 08:00 02/28/18 08:21 Temperature 97.8 F Pulse Rate 88 Respiratory Rate 19 Blood Pressure 154/88 H Pulse Oximetry 99 96 99 02/28/18 12:00 02/28/18 16:00 02/28/18 19:45 Temperature 98.3 F 97.7 F Pulse Rate 96 H 93 H Respiratory Rate 16 18 Blood Pressure 113/86 143/83 H Pulse Oximetry 98 99 99 02/28/18 20:00 03/01/18 00:00 03/01/18 04:00 Temperature 96.6 F L 97.1 F L 97.5 F L Pulse Rate 81 96 H 82 Respiratory Rate 18 18 18 Blood Pressure 137/87 135/81 130/85 Pulse Oximetry 94 L 94 L 93 L Intake & Output 02/28/18 03/01/18 03/01/18 18:59 06:59 18:59 Intake Total 1560 / 1560 3200 / 3200 Output Total 3401 / 3401 2900 / 2900 Balance -1841 / -1841 300 / 300 Weight 60.5 kg Intake: Oral 1560 / 1560 3200 / 3200 Output: Urine 3400 / 3400 2900 / 2900 Stool Other: Date of Last Bowel Movement 02/28/18 02/28/18 Narrative: GENERAL: Well-developed, well-nourished, in no acute distress. alert and orientated HEENT: Head is normocephalic without any lesions or masses noted. Facial features are symmetric. Eyes: Extraocular muscles are intact. Conjunctivae were clear. No nystagmus NECK: Supple without any masses. Trachea midline no deviation. No JVD, CARDIAC: Regular rhythm, regular rate. S1/S2 are heard. No murmurs gallops or rubs. LUNGS: Clear to auscultation bilaterally. No wheeze, rhonchi or rales. No use of accessory muscles on inspiration or expiration. ABDOMEN: Soft, nontender. Nondistended. Bowel sounds heard in all 4 quadrants. No organomegaly or masses. Negative rebound, negative guarding EXTREMITIES: No edema, pulses are equal bilaterally. No cyanosis or clubbing NEUROLOGY: Mood and affect appear appropriate. Cranial nerves II through XII grossly intact. Moving all extremities, speech is clear, no extremity tremors Results - Labs CBC & Chem 7: 02/26/18 06:30 02/26/18 06:30 Assessment and Plan - Assessment (1) Alcohol intoxication Code(s): F10.929 - Alcohol use, unspecified with intoxication, unspecified Status: Acute - Plan Alcohol intoxication/withdrawal -Patient has long-standing history of alcohol abuse with recurrent episodes of blacking out, alcohol withdrawal -Continue Librium 25 mg every 6 hours -CIWA protocol, patient still requiring Ativan per CIWA score -Continue thiamine and folic acid -Monitor for withdrawal/seizure Closed head injury -Patient with blurred vision, extremity tremors, episodes of blacking out, possible seizure -CT of the brain did not indicate any acute abnormality -Continue monitor telemetry -Monitor neurological function -Monitor for any seizures -EEG:Normal awake and sleep electroencephalogram. No evidence for a focal or diffuse abnormality. Chronic tobacco use -Continue nicotine patch -Patient counseled on cessation DVT prevention -Subcutaneous heparin
[2018-03-01] MEDS: Heparin - SQ 10,000 UNITS/ML Vial SQ SCH ×2 (08:32→20:43)
[2018-03-01] MEDS: Folic Acid 1 MG Tablet PO SCH (08:33)
--- NOTE | 2018-03-01 18:10 | ECG ---
Date Performed: 02/26/2018 Time Performed: 07:09:05 PTAGE: 52 years EKG: Sinus rhythm NORMAL ECG PREVIOUS TRACING : 04/27/2017 04.58 Since the previous tracing, no significant change noted DOCTOR: Karl Conley Interpretating Date/Time 03/01/2018 18:08:41
[2018-03-02] MEDS: chlordiazePOXIDE 25 MG Capsule PO SCH ×4 (06:23→23:46)
--- NOTE | 2018-03-02 07:29 | P.PNIM ---
Subjective Interval history: Follow up alcohol withdrawal. Patient seen and examined, lying in bed stating he is still having tremors and sweating overnight. He states he is having a difficult time with ambulation. Awaiting PT eval today. VSS. Afebrile. Physical Exam Vital signs: Vital Signs 03/01/18 08:00 03/01/18 12:00 03/01/18 16:00 Temperature 98.6 F 98.0 F 98.2 F Pulse Rate 92 H 93 H 89 Respiratory Rate 18 17 17 Blood Pressure 119/70 121/68 126/74 Pulse Oximetry 97 98 98 03/01/18 20:00 03/02/18 00:00 03/02/18 04:00 Temperature 97.1 F L 96.5 F L 97.7 F Pulse Rate 92 H 86 77 Respiratory Rate 18 18 18 Blood Pressure 133/79 135/81 137/74 Pulse Oximetry 94 L 93 L 94 L Intake & Output 03/01/18 03/02/18 03/02/18 18:59 06:59 18:59 Intake Total 3000 / 3000 Output Total 1600 / 1600 4500 / 4500 Balance -1600 / -1600 -1500 / -1500 Weight 61 kg Intake: Oral 3000 / 3000 Output: Urine 1600 / 1600 4500 / 4500 Other: Date of Last Bowel Movement 03/01/18 03/01/18 Narrative: GENERAL: Well-developed, well-nourished, in no acute distress. alert and orientated HEENT: Head is normocephalic without any lesions or masses noted. Facial features are symmetric. Eyes: Extraocular muscles are intact. Conjunctivae were clear. No nystagmus NECK: Supple without any masses. Trachea midline no deviation. No JVD, CARDIAC: Regular rhythm, regular rate. S1/S2 are heard. No murmurs gallops or rubs. LUNGS: Clear to auscultation bilaterally. No wheeze, rhonchi or rales. No use of accessory muscles on inspiration or expiration. ABDOMEN: Soft, nontender. Nondistended. Bowel sounds heard in all 4 quadrants. No organomegaly or masses. Negative rebound, negative guarding EXTREMITIES: No edema, pulses are equal bilaterally. No cyanosis or clubbing NEUROLOGY: Mood and affect appear appropriate. Cranial nerves II through XII grossly intact. Moving all extremities, speech is clear, no extremity tremors Results - Labs CBC & Chem 7: 10/26/18 06:30 02/26/18 06:30 Assessment and Plan - Assessment (1) Alcohol intoxication Code(s): F10.929 - Alcohol use, unspecified with intoxication, unspecified Status: Acute - Plan This is a 52-year-old male with: Alcohol intoxication/withdrawal -Patient has long-standing history of alcohol abuse with recurrent episodes of blacking out, alcohol withdrawal -Patient is still complaining he cannot walk. Awaiting PT eval today again for discharge disposition. Patient did well without Ativan overnight. -Continue Librium 25 mg every 6 hours -Continue thiamine and folic acid -Monitor for withdrawal/seizure Closed head injury -Patient with blurred vision, extremity tremors, episodes of blacking out, possible seizure -CT of the brain did not indicate any acute abnormality -Continue monitor telemetry -Monitor neurological function -Monitor for any seizures -EEG:Normal awake and sleep electroencephalogram. No evidence for a focal or diffuse abnormality. Chronic tobacco use -Continue nicotine patch -Patient counseled on cessation DVT prevention -Subcutaneous heparin Discharge Planning: Await PT eval for dc disposition. Possibly later this afternoon.
[2018-03-02] MEDS: Folic Acid 1 MG Tablet PO SCH (08:01)
[2018-03-02] MEDS: Heparin - SQ 10,000 UNITS/ML Vial SQ SCH ×2 (08:01→22:03)
[2018-03-02] MEDS: Acetaminophen 325 MG Tablet PO PRN ×2 (11:55→17:02)
--- NOTE | 2018-03-03 07:58 | P.PNIM ---
Subjective Interval history: Follow-up alcohol withdrawal and generalized weakness. Patient seen and examined, sitting up in bed comfortably no apparent distress. Eating and drinking fine without abdominal pain, nausea or vomiting. PT to come and see patient twice a day. Supposedly patient was out of bed ambulating per self to the nurses station. Work with PT this morning much improved today. Will attempt another therapy session with PT and possible discharge later today. It seems that patient is wanting to stay in comfortable here, states that he lives at home alone and does not feel like he can take care of himself. He is proving that he is completely capable and able to perform ADLs per self as well as ambulate without any problems. Continue to monitor. Vital signs stable. Afebrile. No signs of withdrawal. Physical Exam Vital signs: Vital Signs 03/02/18 08:00 03/02/18 12:00 03/02/18 12:25 Temperature 97.2 F L 98.1 F Pulse Rate 80 90 Respiratory Rate 20 22 18 Blood Pressure 127/70 129/85 Pulse Oximetry 96 96 03/02/18 16:00 03/02/18 20:00 03/03/18 00:00 Temperature 98.5 F 98.5 F 97.2 F L Pulse Rate 87 102 H 80 Respiratory Rate 20 20 20 Blood Pressure 128/79 135/77 129/78 Pulse Oximetry 97 96 97 Intake & Output 03/02/18 03/03/18 03/03/18 18:59 06:59 18:59 Intake Total 840 / 840 1440 / 1440 Output Total 1999 3100 / 3100 Balance -1160 / -1160 -1660 / -1660 Weight 61 kg Intake: Oral 840 / 840 1440 / 1440 Output: Urine 1999 3100 / 3100 Other: Date of Last Bowel Movement 03/01/18 Narrative: GENERAL: Well-developed, well-nourished, in no acute distress. alert and orientated HEENT: Head is normocephalic without any lesions or masses noted. Facial features are symmetric. Eyes: Extraocular muscles are intact. Conjunctivae were clear. No nystagmus NECK: Supple without any masses. Trachea midline no deviation. No JVD, CARDIAC: Regular rhythm, regular rate. S1/S2 are heard. No murmurs gallops or rubs. LUNGS: Clear to auscultation bilaterally. No wheeze, rhonchi or rales. No use of accessory muscles on inspiration or expiration. ABDOMEN: Soft, nontender. Nondistended. Bowel sounds heard in all 4 quadrants. No organomegaly or masses. Negative rebound, negative guarding EXTREMITIES: No edema, pulses are equal bilaterally. No cyanosis or clubbing NEUROLOGY: Mood and affect appear appropriate. Cranial nerves II through XII grossly intact. Moving all extremities, speech is clear, no extremity tremors Results - Labs CBC & Chem 7: 02/26/18 06:30 02/26/18 06:30 Assessment and Plan - Assessment (1) Alcohol intoxication Code(s): F10.929 - Alcohol use, unspecified with intoxication, unspecified Status: Acute - Plan This is a 52-year-old male with: Alcohol intoxication/withdrawal -Patient has long-standing history of alcohol abuse with recurrent episodes of blacking out, alcohol withdrawal -Patient is still complaining of generalized weakness. PT evaluation appreciated, therapy for twice a day. He did well this morning, ambulating to desk herself. Will do one more treatment this afternoon, possible discharge later. Has not needed Ativan. No signs of withdrawal at this time. -Continue Librium 25 mg every 6 hours -Continue thiamine and folic acid -Monitor for withdrawal/seizure. Closed head injury -Patient with blurred vision, extremity tremors, episodes of blacking out, possible seizure. All resolved. -CT of the brain did not indicate any acute abnormality -Continue monitor telemetry, no significant findings. -Monitor neurological function, intact. -Monitor for any seizures, no signs of any seizures. -EEG: Normal awake and sleep electroencephalogram. No evidence for a focal or diffuse abnormality. Chronic tobacco use -Continue nicotine patch -Patient counseled on cessation DVT prevention -Subcutaneous heparin Discharge Planning: PT disposition for home health PT. Will allow 1 more treatment with PT this afternoon, possible discharge later today.
[2018-03-03] MEDS: Folic Acid 1 MG Tablet PO SCH (08:55)
[2018-03-03] MEDS: Heparin - SQ 10,000 UNITS/ML Vial SQ SCH (08:55)
[2018-03-03] MEDS: chlordiazePOXIDE 25 MG Capsule PO SCH (08:57)
--- NOTE | 2018-03-03 15:34 | P.DS ---
Date of admission: 02/26/18 09:37 Primary care physician: No Primary Care Physician Anticipated date of discharge: 03/03/18 Brief History from admission: 52-year-old chronic alcoholic who presented to the hospital because of waking up on the ground. Patient states that he was watching the [place] game last night and drank quite a bit of beer and had a few shots. He went to bed last night and he woke up on the ground this morning. Because of that reason he came to the emergency department for evaluation. Patient indicates that approximate 2 weeks ago he was intoxicated and he fell down and hit the front part of his head. Since then he states that he is been having problems with blurred vision, extremity tremors, he states that one of his friends noticed him having a possible tremors/seizure activity. Patient states that he woke up this morning he did not have any loss of bowel or bladder control, no muscle aches, no biting of his tongue or blood in his mouth. Patient indicates that he has been through alcohol withdrawal before and usually takes proxy 9 days in order for him to completely get through withdrawals. Patient update on day of discharge: See note. DS: Diagnosis - Discharge Diagnosis (1) Alcohol intoxication Status: Acute DS: Summary Hospital Course: This is a 52-year-old male with alcohol intoxication/withdrawal. Patient has long-standing history of alcohol abuse with recurrent episodes of blacking out, alcohol withdrawal. PT evaluation appreciated, therapy for twice a day. He did well this morning, ambulating. Has not needed Ativan. No signs of withdrawal at this time. Librium 25 mg every 6 hours during hospitalization as well as continue thiamine and folic acid. Patient with closed head injury, presented with blurred vision, extremity tremors, episodes of blacking out, possible seizure. All resolved. CT of the brain did not indicate any acute abnormality. Continued to monitor telemetry, no significant findings. Monitored neurological function, intact. Monitored for any seizures, no signs of any seizures. EEG: Normal awake and sleep electroencephalogram. No evidence for a focal or diffuse abnormality. Chronic tobacco use. Patient counseled on cessation of alcohol as well. Dc home. PT no recs for home. DC plan per summary. Diet as tolerated. Activity as tolerated. NO ALOCHOL. Encourage Tomas Zuniga. - Time Spent with Patient Total time spent providing and/or coordinating discharge services: Greater than 30 minutes - Quality: VTE Deep Vein Thrombosis/Pulmonary Embolism Present on Admission: No Exam Vital signs: Vital Signs 03/02/18 16:00 03/02/18 20:00 03/03/18 00:00 Temperature 98.5 F 98.5 F 97.2 F L Pulse Rate 87 102 H 80 Respiratory Rate 20 20 20 Blood Pressure 128/79 135/77 129/78 Pulse Oximetry 97 96 97 03/03/18 08:00 03/03/18 11:59 Temperature 97.2 F L 97.5 F L Pulse Rate 81 91 H Respiratory Rate 20 20 Blood Pressure 152/84 H 134/85 Pulse Oximetry 98 97 Intake & Output 03/02/18 03/03/18 03/03/18 18:59 06:59 18:59 Intake Total 840 / 840 1440 / 1440 Output Total 1999 3100 / 3100 Balance -1160 / -1160 -1660 / -1660 Weight 61 kg Intake: Oral 840 / 840 1440 / 1440 Output: Urine 1999 3100 / 3100 Other: Date of Last Bowel Movement 03/01/18 03/01/18 Narrative: GENERAL: Well-developed, well-nourished, in no acute distress. alert and orientated HEENT: Head is normocephalic without any lesions or masses noted. Facial features are symmetric. Eyes: Extraocular muscles are intact. Conjunctivae were clear. No nystagmus NECK: Supple without any masses. Trachea midline no deviation. No JVD, CARDIAC: Regular rhythm, regular rate. S1/S2 are heard. No murmurs gallops or rubs. LUNGS: Clear to auscultation bilaterally. No wheeze, rhonchi or rales. No use of accessory muscles on inspiration or expiration. ABDOMEN: Soft, nontender. Nondistended. Bowel sounds heard in all 4 quadrants. No organomegaly or masses. Negative rebound, negative guarding EXTREMITIES: No edema, pulses are equal bilaterally. No cyanosis or clubbing NEUROLOGY: Mood and affect appear appropriate. Cranial nerves II through XII grossly intact. Moving all extremities, speech is clear, no extremity tremors Results Procedures completed during hospitalization: See above. - Impressions ITS Impressions Head CT 02/26/18 06:23 CONCLUSION: 1. No acute findings in the brain. 2. Chronic bilateral maxillary sinus disease. . Abdomen/Pelvis CT 02/26/18 07:49 CONCLUSION: 1. Hepatic steatosis and hepatomegaly. 2. Atherosclerosis. 3. No inflammatory changes are seen in the abdomen or pelvis. Discharge Plan - Discharge Disposition Patient Disposition: 01 Discharge Home - Discharge Condition Condition: Stable - Discharge Order Discharge Orders: Discharge Order (Routine); Ordered 03/03/18 Ordered By: Hilary Espinosa - Discharge Details Anticipated Discharge Date: 03/03/18 - Physicians Team Primary Care Provider: Primary Care Jazz Coleman Attending Provider: Edouard Evans
== END 2018-03-03 18:04 | disposition home or self-care (01) ==
LOC: PHED 06:06 → PHEDA 06:06 → PH3 10:51
PROVIDERS: ADMIT Internal Medicine; ATTEND Internal Medicine